=== PATIENT | female | born 1985 | race Caucasian/White ===

== ENCOUNTER → 2021-05-19 | Outpatient (CLI) | payer OTHER, SELFPAY ==
[2021-05-19 13:55] LABS: Amphetamine Urine VISTA NEGATIVE (<1000 ng/mL); Barbiturate Urine VISTA NEGATIVE (< 200 ng/mL); Benzodiazepine Urine VISTA NEGATIVE (< 200 ng/mL); Cocaine Urine VISTA NEGATIVE (< 300 ng/mL); Ecstacy Urine VISTA NEGATIVE (< 500 ng/mL); Methadone Urine VISTA NEGATIVE (< 300 ng/mL); PCP Urine VISTA NEGATIVE (< 25 ng/mL); THC Urine VISTA NEGATIVE (< 50 ng/mL)
[2021-05-19 14:05] LABS: Vista UDS pH Range 5
[2021-05-24 00:06] LABS: Chlamydia By Nucleic Acid AMP Negative (Negative)
[2021-05-24 09:17] LABS: Gonococcus By Nucleic Acid AMP Negative (Negative)
[2021-05-26 16:15] LABS: HPV APTIMA, High Risk Positive (Negative)
== END | disposition home or self-care (01) ==
LOC: LABSPEC 13:15
PROVIDERS: PCP Family Medicine; Referring Provider Obstetrics & Gynecology; Visit Provider Obstetrics & Gynecology
DX: Z34.00 Encounter for supervision of normal first pregnancy, unspecified trimester (principal); Z12.4 Encounter for screening for malignant neoplasm of cervix
CPT/HCPCS: 80307; 87086; 87088; 87491; 87591; 87624; 88175; G0145

== ENCOUNTER 2021-05-31 11:38 | Outpatient (CLI) | payer BC, SELFPAY ==
[2021-05-31 12:03] LABS: Absolute Neutrophil Count 7.6 X10^3/uL (2.0-7.7); Basophil# 0.06 X10^3/uL; Basophil% 0.6 % (0-1); Eosinophil# 0.11 X10^3/uL; Eosinophils% 1.1 % (0-5); Hematocrit 39.2 % (37-47); Hemoglobin 13.3 g/dL (12.0-15.0); Lymphocyte % 18.4 % (19-41); Mean Corp Hgb Conc 33.9 g/dL (32-36); Mean Corpuscular Hgb 30.9 pg (27.0-32.0); Mean Corpuscular Volume 91.2 fL (81-99); Mean Platelet Vol. 10.8 fl (6.2-12.0); Monocyte# 0.57 X10^3/uL; Monocyte% 5.5 % (0-10); NRBC Flagged by Analyzer 0 % (0-5); Neutrophil # 7.64 X10^3/uL (2.7-7.7); Neutrophil % 74.2 % (47-70); Platelet Count 253 K/mm3 (150-450); RBC Distribution Width CV 12.7 % (11.6-14.6); RBC Distribution Width SD 41.4 fl (35.1-43.9); White Blood Count 10.3 K/mm3 (4.4-11.0)
[2021-05-31 12:55] LABS: NATERA MAILED SPECIMEN
[2021-05-31 13:05] LABS: HIV - WCH Non-Reactive (Nonreactive); Hepatitis B Surface Antigen Non-Reactive (Nonreactive); Hepatitis C Antibody Non-Reactive (Nonreactive); Rubella IgG Reactive (Nonreactive); Syphilis Antibodies Non-reactive
== END 2021-05-31 23:59 | disposition short-term general hospital (02) ==
PROVIDERS: PCP Family Medicine; Referring Provider Obstetrics & Gynecology; Visit Provider Obstetrics & Gynecology
DX: Z34.81 Encounter for supervision of other normal pregnancy, first trimester (principal)
CPT/HCPCS: 36415; 85025; 86703; 86762; 86780; 86803; 86850; 86900; 86901; 87340

== ENCOUNTER 2021-07-29 13:13 | Outpatient (CLI) | payer BC, SELFPAY | END 2021-07-29 23:59 | disposition home or self-care (01) | LOC: IMMUN 08-02 13:14 | PROVIDERS: PCP Family Medicine; Visit Provider Family Medicine | DX: Z23 Encounter for immunization (principal) ==

== ENCOUNTER 2021-09-09 13:06 | Outpatient (CLI) | payer BC, SELFPAY ==
[2021-09-09 13:27] LABS: Absolute Neutrophil Count 9.3 X10^3/uL (2.0-7.7); Basophil# 0.05 X10^3/uL; Basophil% 0.4 % (0-1); Eosinophil# 0.16 X10^3/uL; Eosinophils% 1.3 % (0-5); Hematocrit 35.4 % (37-47); Hemoglobin 11.7 g/dL (12.0-15.0); Lymphocyte % 14.8 % (19-41); Mean Corp Hgb Conc 33.1 g/dL (32-36); Mean Corpuscular Hgb 31.5 pg (27.0-32.0); Mean Corpuscular Volume 95.4 fL (81-99); Mean Platelet Vol. 10.6 fl (6.2-12.0); Monocyte# 0.79 X10^3/uL; Monocyte% 6.5 % (0-10); NRBC Flagged by Analyzer 0 % (0-5); Neutrophil # 9.27 X10^3/uL (2.7-7.7); Neutrophil % 76.2 % (47-70); Platelet Count 230 K/mm3 (150-450); RBC Distribution Width CV 12.8 % (11.6-14.6); RBC Distribution Width SD 44.4 fl (35.1-43.9); Red Blood Count 3.71 M/mm3 (4.2-5.4); White Blood Count 12.2 K/mm3 (4.4-11.0)
[2021-09-09 13:45] LABS: Glucose Challenge Gest 1H 50g 113 mg/dL (70-140)
== END 2021-09-09 23:59 | disposition home or self-care (01) ==
LOC: PAVLAB 13:07
PROVIDERS: PCP Family Medicine; Referring Provider Obstetrics & Gynecology; Visit Provider Obstetrics & Gynecology
DX: Z34.00 Encounter for supervision of normal first pregnancy, unspecified trimester (principal)
CPT/HCPCS: 36415; 82950; 85025

== ENCOUNTER → 2021-10-05 | Outpatient (CLI) | payer BC, SELFPAY ==
--- NOTE | 2021-10-05 14:27 | US_ITS ---
STUDY: SECOND AND THIRD TRIMESTER OBSTETRICAL ULTRASOUND - LIMITED REASON FOR EXAM: Female, 35 years old growth for twins LMP: 03/14/2021. PRIOR ULTRASOUND: None. TECHNIQUE: Transabdominal TECHNICAL QUALITY: Adequate. FINDINGS: Baby A: There is a single intrauterine fetus. The fetus is in a cephalic presentation. There is demonstrated cardiac activity with a heart rate of 150 bpm. There is a normal amniotic fluid volume. The largest amniotic fluid pocket measures 5.8 cm. The amniotic fluid index (FLO) is within normal limits . The placenta is posterior in location and is not low lying. There are Grade 0 placental changes. The cervix measures 3.1 cm in length. BIOMETRY: BPD: 7.7 cm: 30 weeks, 5 days HC: 27.6 cm: 30 weeks, 1 days AC: 24.9 cm: 29 weeks, 1 days FL: 5.4 cm: 28 weeks, 4 days Age by LMP: 29 weeks, 2 days. FADY by LMP: 12/19/2021. age by current US: 29 weeks, 3 days. FADY by current US: 12/18/2021. Estimated weight: 1367 grams, +/- 205 grams, 37 percentile. IMPRESSION: Single live intrauterine gestation with a mean gestational age of 29 weeks and 3 days. Electronically Signed: Richar Cross MD at 13:09 EDT , STUDY: SECOND AND THIRD TRIMESTER OBSTETRICAL ULTRASOUND - TWIN REASON FOR EXAM: Female, 35 years old. LMP: 03/14/2021. growth for twins TECHNIQUE: Transabdominal TECHNICAL QUALITY: Adequate. COMPARISON: None. FINDINGS: . Fetus B demonstrates cardiac activity with a heart rate of 141 bpm. Fetus B is in a breech presentation. FETUS B BIOMETRY: BPD: 7.3 cm: 29 weeks, 1 days HC: 27.2 cm: 29 weeks, 4 days AC: 25.8 cm: 29 weeks, 6 days FL: 5.6 cm: 29 weeks, 4 days CI: 77% FL/BPD: 77% FL/HC: FL/AC: 22% HC/AC: 1.06 age by current US: 29 weeks, 1 days. FADY by current US: 12/19/2021. Estimated weight: 1454 grams, +/- 208 grams, 55 %. Age by LMP: 29 weeks, 2 days. FADY by LMP: 12/19/2021. US/OB Limited With Biometrics IMPRESSION: Normal intrauterine . Electronically Signed: Richar Cross MD at 13:32 EDT ,
== END | disposition home or self-care (01) ==
LOC: US 14:26
PROVIDERS: PCP Family Medicine; Referring Provider Obstetrics & Gynecology; Visit Provider Obstetrics & Gynecology
DX: O30.002 Twin pregnancy, unspecified number of placenta and unspecified number of amniotic sacs, second trimester (principal); F41.1 Generalized anxiety disorder; Z3A.27 27 weeks gestation of pregnancy; O99.342 Other mental disorders complicating pregnancy, second trimester
CPT/HCPCS: 76816

== ENCOUNTER → 2021-11-22 | Outpatient (CLI) | payer BC, SELFPAY | END | disposition home or self-care (01) | LOC: LABSPEC 17:12 | PROVIDERS: PCP Family Medicine; Visit Provider Obstetrics & Gynecology | DX: Z34.00 Encounter for supervision of normal first pregnancy, unspecified trimester (principal) | CPT/HCPCS: 87081 ==

== ENCOUNTER → 2021-11-25 | Outpatient (CLI) | payer BC, SELFPAY ==
--- NOTE | 2021-11-25 14:16 | US_ITS ---
STUDY: SECOND AND THIRD TRIMESTER OBSTETRICAL ULTRASOUND - TWIN REASON FOR EXAM: Female, 36 years old. growth TECHNIQUE: Transabdominal TECHNICAL QUALITY: Adequate. COMPARISON: Oct 05 2021 2:33pm FINDINGS: There are two intrauterine fetuses. Fetus A demonstrates cardiac activity with a heart rate of 131 bpm. Fetus ?A? is in a cephalic presentation. Left There is a normal amniotic fluid volume. The largest amniotic fluid pocket measures 4.5 cm. The placenta is posterior in location and is not low lying. There are Grade 2 placental changes. The cervix is obscured by overlying bowel gas and cannot be identified. . The bilateral adnexal regions are nonvisualized. FETUS A BIOMETRY: BPD: 90 mm: 36 weeks, 2 days HC: 321 mm: 36 weeks, 1 days AC: 313 mm: 35 weeks, 1 days FL: 68 mm: 34 weeks, 5 days CI: 82.4 FL/AC: 21.7 FL/BPD: 75.3 HC/AC: 1.03 age by current US: 35 weeks, 3 days. FADY by current US: 8.2.22. Estimated weight: 2664 grams, +/- 400 grams, 24.3 %. age by prior US: 36 weeks, 5 days. FADY by prior US: 7.24.22. Age by LMP: 36 weeks, 4 days. FADY by LMP: 7.25.22. FETUS A ANATOMY: Gender: Female Fetus B demonstrates cardiac activity with a heart rate of 132 bpm. Fetus B is in a cephalic presentation. Right. There is a normal amniotic fluid volume. The largest amniotic fluid pocket measures 4.6 cm. The placenta is anterior in location and is not low lying. There are Grade 2 placental changes. The cervix is obscured by overlying bowel gas and cannot be identified. . The bilateral adnexal regions are nonvisualized. FETUS B BIOMETRY: BPD: 80 mm: 32 weeks, 0 days HC: 321 mm: 36 weeks, 1 days AC: 337 mm: 37 weeks, 4 days FL: 69 mm: 35 weeks, 3 days CI: 68 FL/AC: 20.5 FL/BPD: 86.5 HC/AC: .95 age by current US: 35 weeks, 2 days. FADY by current US: 8.3.22. Estimated weight: 2879 grams, +/- 432 grams, 44.2 %. age by prior US: 36 weeks, 4 days. FADY by prior US: 7.25.22. Age by LMP: 36 weeks, 4 days. FADY by LMP: 7.25.22. FETUS B ANATOMY: Gender: Male IMPRESSION: There are two intrauterine fetuses. Fetus A demonstrates cardiac activity with a heart rate of 131 bpm. age by current US: 35 weeks, 3 days. FADY by current US: 8.2.22. Estimated weight: 2664 grams, +/- 400 grams, 24.3 %. Fetus B demonstrates cardiac activity with a heart rate of 132 bpm. age by current US: 35 weeks, 2 days. FADY by current US: 8.3.22. Estimated weight: 2879 grams, +/- 432 grams, 44.2 %. Electronically Signed: Jimy Melo MD at 16:33 EDT , STUDY: SECOND AND THIRD TRIMESTER OBSTETRICAL ULTRASOUND - TWIN REASON FOR EXAM: Female, 36 years old. growth TECHNIQUE: Transabdominal TECHNICAL QUALITY: Adequate. COMPARISON: Oct 05 2021 2:33pm FINDINGS: There are two intrauterine fetuses. There is a normal amniotic fluid volume within each amniotic sac. Fetus A demonstrates cardiac activity with a heart rate of 131 bpm. Fetus ?A? is in a cephalic presentation. Left There is a normal amniotic fluid volume. The largest amniotic fluid pocket measures 4.5 cm. The placenta is posterior in location and is not low lying. There are Grade 2 placental changes. The cervix is obscured by overlying bowel gas and cannot be identified. . The bilateral adnexal regions are nonvisualized. FETUS A BIOMETRY: BPD: 90 mm: 36 weeks, 2 days HC: 321 mm: 36 weeks, 1 days AC: 313 mm: 35 weeks, 1 days FL: 68 mm: 34 weeks, 5 days CI: 82.4 FL/AC: 21.7 FL/BPD: 75.3 HC/AC: 1.03 age by current US: 35 weeks, 3 days. FADY by current US: 8.2.22. Estimated weight: 2664 grams, +/- 400 grams, 24.3 %. age by prior US: 36 weeks, 5 days. FADY by prior US: 7..22. Age by LMP: 36 weeks, 4 days. FADY by LMP: 7..22. FETUS A ANATOMY: Gender: Female Fetus B demonstrates cardiac activity with a heart rate of 132 bpm. Fetus B is in a cephalic presentation. Right. There is a normal amniotic fluid volume. The largest amniotic fluid pocket measures 4.6 cm. The placenta is anterior in location and is not low lying. There are Grade 2 placental changes. The cervix is obscured by overlying bowel gas and cannot be identified. . The bilateral adnexal regions are nonvisualized. FETUS B BIOMETRY: BPD: 80 mm: 32 weeks, 0 days HC: 321 mm: 36 weeks, 1 days AC: 337 mm: 37 weeks, 4 days FL: 69 mm: 35 weeks, 3 days CI: 68 FL/AC: 20.5 FL/BPD: 86.5 HC/AC: .95 age by current US: 35 weeks, 2 days. FADY by current US: 8.3.22. Estimated weight: 2879 grams, +/- 432 grams, 44.2 %. age by prior US: 36 weeks, 4 days. FADY by prior US: 7..22. Age by LMP: 36 weeks, 4 days. FADY by LMP: 7..22. FETUS B ANATOMY: Gender: Male US/OB Limited With Biometrics
== END | disposition home or self-care (01) ==
PROVIDERS: PCP Family Medicine; Referring Provider Obstetrics & Gynecology; Visit Provider Obstetrics & Gynecology
DX: O30.001 Twin pregnancy, unspecified number of placenta and unspecified number of amniotic sacs, first trimester (principal); Z3A.00 Weeks of gestation of pregnancy not specified
CPT/HCPCS: 76816

== ENCOUNTER → 2021-11-30 | Outpatient (CLI) | payer BC, SELFPAY ==
[2021-11-30 11:20] LABS: ROM Internal Control Test YES-OK TO RESULT pt. (Internal QC); ROM Patient Test Negative (Negative)
== END | disposition home or self-care (01) ==
LOC: LABSPEC 11:02
PROVIDERS: PCP Family Medicine; Visit Provider Nurse Practitioner Women's Health
DX: O42.90 Premature rupture of membranes, unspecified as to length of time between rupture and onset of labor, unspecified weeks of gestation (principal); Z3A.00 Weeks of gestation of pregnancy not specified
CPT/HCPCS: 84112

== ENCOUNTER → 2021-12-06 | Outpatient (CLI) | payer BC, SELFPAY ==
--- NOTE | 2021-12-06 18:37 | US_ITS ---
STUDY: OBSTETRICAL ULTRASOUND - BIOPHYSICAL PROFILE REASON FOR EXAM: Female, 36 years old. well-being. Twin . LMP: 03/14/2021 PRIOR ULTRASOUND: 11/25/2021 and 10/05/2021 TECHNIQUE: TECHNICAL QUALITY: Adequate. FINDINGS: There is a dichorionic diamniotic twin . Fetus A in a cephalic presentation on the maternal left. There is demonstrated cardiac activity with a heart rate of 124 bpm. There is a normal amniotic fluid volume. The largest amniotic fluid pocket measures 4.4 cm. The placenta is posterior in location and is not low lying. There are Grade 2 placental changes. Age by LMP: 38 weeks, 1 days. FADY by LMP: 12/19/2021.. age by prior US: 38 weeks, 2 days. FADY by prior US: 12/18/2021.. Gender: Female BIOPHYSICAL PROFILE: Breathing Movements (FBM): 2 Gross Body Movements (GBM): 2 Tone (FT): 2 Amniotic Fluid Volume (AFV): 2 TOTAL SCORE: 8 / 8 Fetus B in a cephalic presentation on maternal right. There is demonstrated cardiac activity with a heart rate of 138 bpm. There is a normal amniotic fluid volume. The largest amniotic fluid pocket measures 4.3 cm. The placenta is anterior in location and is not low lying. There are Grade 2 placental changes. Age by LMP: 38 weeks, 1 days. FADY by LMP: 12/19/2021.. age by prior US: 30 weeks, 1 days. FADY by prior US: 12/19/2021. Gender: Male BIOPHYSICAL PROFILE: Breathing Movements (FBM): 2 Gross Body Movements (GBM): 2 Tone (FT): 2 Amniotic Fluid Volume (AFV): 2 TOTAL SCORE: 8 / 8 IMPRESSION: 1. Normal biophysical profile of 8/8 for fetus A. 2. Normal biophysical profile of 8/8 for fetus B. Electronically Signed: Werner Wells DO at 20:24 EDT , STUDY: OBSTETRICAL ULTRASOUND - BIOPHYSICAL PROFILE REASON FOR EXAM: Female, 36 years old. well-being. Twin . LMP: 03/14/2021 PRIOR ULTRASOUND: 11/25/2021 and 10/05/2021 TECHNIQUE: TECHNICAL QUALITY: Adequate. FINDINGS: There is a dichorionic diamniotic twin . Fetus A in a cephalic presentation on the maternal left. There is demonstrated cardiac activity with a heart rate of 124 bpm. There is a normal amniotic fluid volume. The largest amniotic fluid pocket measures 4.4 cm. The placenta is posterior in location and is not low lying. There are Grade 2 placental changes. Age by LMP: 38 weeks, 1 days. FADY by LMP: 12/19/2021.. age by prior US: 38 weeks, 2 days. FADY by prior US: 12/18/2021.. Gender: Female BIOPHYSICAL PROFILE: Breathing Movements (FBM): 2 Gross Body Movements (GBM): 2 Tone (FT): 2 Amniotic Fluid Volume (AFV): 2 TOTAL SCORE: 8 / 8 Fetus B in a cephalic presentation on maternal right. There is demonstrated cardiac activity with a heart rate of 138 bpm. There is a normal amniotic fluid volume. The largest amniotic fluid pocket measures 4.3 cm. The placenta is anterior in location and is not low lying. There are Grade 2 placental changes. Age by LMP: 38 weeks, 1 days. FADY by LMP: 12/19/2021.. age by prior US: 30 weeks, 1 days. FADY by prior US: 12/19/2021. Gender: Male BIOPHYSICAL PROFILE: Breathing Movements (FBM): 2 Gross Body Movements (GBM): 2 Tone (FT): 2 Amniotic Fluid Volume (AFV): 2 TOTAL SCORE: 8 / 8 US/Biophysical Prof W/O Non Stres IMPRESSION: 1. Normal biophysical profile of 8 for fetus A. 2. Normal biophysical profile of 8 for fetus B. Electronically Signed: Werner Wells DO at 20:25 EDT ,
== END | disposition home or self-care (01) ==
LOC: US 18:35
PROVIDERS: PCP Family Medicine; Visit Provider Obstetrics & Gynecology
DX: O30.003 Twin pregnancy, unspecified number of placenta and unspecified number of amniotic sacs, third trimester (principal); Z3A.38 38 weeks gestation of pregnancy
CPT/HCPCS: 76819

== ENCOUNTER 2021-12-07 07:05 | Inpatient (IN) | payer BC, SELFPAY ==
[2021-12-07] VITALS (41 sets, daily range): BP systolic 117–143; BP diastolic 61–83; PULSE 55–164; TEMP 36.6–37.6; O2SAT 96–100; BMI 28.5
[2021-12-07] MEDS: Lactated Ringers 1,000 ML 50 ML IV (08:00)
[2021-12-07] MEDS: Oxytocin 30 units/NS 500 ml 30 UNITS/500 ML IV.SOLN IV (08:28)
[2021-12-07 08:31] LABS: Absolute Lymphocyte Count 1.92 X10^3/uL (0.83-4.51); Absolute Neutrophil Count 5.6 X10^3/uL (2.0-7.7); Basophil# 0.11 X10^3/uL; Basophil% 1.3 % (0-1); Eosinophil# 0.31 X10^3/uL; Eosinophils% 3.6 % (0-5); Hematocrit 36.4 % (37-47); Hemoglobin 11.9 g/dL (12.0-15.0); Lymphocyte # 1.92 X10^3/ul (0.83-4.51); Lymphocyte % 22.3 % (19-41); Mean Corp Hgb Conc 32.7 g/dL (32-36); Mean Corpuscular Hgb 28.7 pg (27.0-32.0); Mean Corpuscular Volume 87.7 fL (81-99); Mean Platelet Vol. 13.8 fl (6.2-12.0); Monocyte# 0.59 X10^3/uL; Monocyte% 6.9 % (0-10); NRBC Flagged by Analyzer 0 % (0-5); Neutrophil # 5.58 X10^3/uL (2.7-7.7); Neutrophil % 64.7 % (47-70); Platelet Count 170 K/mm3 (150-450); RBC Distribution Width SD 44.5 fl (35.1-43.9); Red Blood Count 4.15 M/mm3 (4.2-5.4); White Blood Count 8.6 K/mm3 (4.4-11.0)
[2021-12-07] MEDS: 0.9% Normal Saline Single 100 ML IV.SOLN. INTRA-UTER (09:02)
--- NOTE | 2021-12-07 09:03 | HP.PCM.OB_ITS ---
HPI - General General Date of Admission: 12/07/21 HPI Narrative LINNETTE MORALES, is a 36 F who presents ofr IOL secondary to twins, uncomplicated no vb lof admits good fm x 2 Maternal Data Information FADY Calculator Estimated Delivery Date Method Current WG Current Estimate 12/19/21 LMP (Certain) 38w 2d Other Estimates 12/17/21 Ultrasound #1 38w 4d # 2 PFSH PFSH Medical History (Updated 12/07/21 @ 09:[address] Eun Orourke MD) ASCUS with positive high risk HPV COVID-19 vaccine series completed ALMA DELIA (generalized anxiety disorder) Home Medications multivitamin no.47-iron fum 27 mg-folate no.1 1 mg-dha 300 mg capsule (PNV-DHA) 1 cap PO DAILY 05/04/21 [History Last Taken 12/05/21 10:00] aspirin 81 mg tablet 81 mg PO DAILY 12/07/21 [History Last Taken 12/05/21 10:00] Allergy/AdvReac Type Severity Reaction Status Date / Time No Known Allergies Allergy Verified 11/30/21 10:29 Family History Grandmother Breast cancer Other Cancer Hypertension Surgical History (Updated 12/07/21 @ 08:02 by Sara Tsang) History of surgery Social History household members: family current occupational status: employed current occupation: [employer] pets and animals: Yes Smoking Status: Never smoker second hand exposure: No alcohol intake: current details: not while substance use type: does not use caffeine: No seatbelt use: always do you feel safe at home: Yes additional social history: - Haroon- step son Angel Luis age 8 History 1 Elective abortions Hx Para 0 Spontaneous abortions Hx # Term Pregnancies Ectopic pregnancies Hx # Pregnancies Multiple births # of living children Visit Details Expected Delivery Route/Plan Labor Preferences- CB/BF classes: encouraged labor support person: [] labor intervention preferences: [] pain management options preferred: [] cut cord/dad catch: [] : [] PP control planned: [] discussed possible routes of delivery and associated risks: [] special requests: [] Plans Covid status: vaccinated. Flu vaccine: encouraged. Tdap vaccine: given Rhogam: na LARC form signed: na movement and labor precautions reviewed. Problem list reviewed and updated with the most current plan of care details and appropriate orders placed. Relevant counseling for the gestational age provided. Continue routine care and follow up unless otherwise noted in visit notes/problem list details OB Flowsheet Initial Weight: Not Recorded Date -?-?-?-?--?-?-?-?-?-?-?-?- EGA Weight BP Urine Prot -?-?-?-?-?-?-?-?-?-?-?-?- Glucose FHR FuHt Pres Dilation -?-?-?-?-?-?-?-?-?-?-?-?- Effaced St Visit Note 05/19/21 -?-?-?-?-?-?-?-?-?-?-?-?- 9w 3d 137 lb 4 oz 122/76 -?-?-?-?-?-?-?-?-?-?-?-?- A -?-?-?-?-?-?-?-?-?-?-?-?- B A -?-?-?-?-?-?-?-?-?-?-?-?- B -?-?-?-?-?-?-?-?-?-?-?-?- A -?-?-?-?-?-?-?-?-?-?-?-?- B A JV- Di/Di twin g estation both consistent with cRL -?-?-?-?-?-?-?-?-?-?-?-?- B 06/17/21 -?-?-?-?-?-?-?-?-?-?-?-?- 13w 4d 141 lb 110/72 110/72 Negative -?-?-?-?-?-?-?-?-?-?-?-?- Negative A 145 -?-?-?-?-?-?-?-?-?-?-?-?- B 145 A -?-?-?-?-?-?-?-?-?-?-?-?- B -?-?-?-?-?-?-?-?-?-?-?-?- A -?-?-?-?-?-?-?-?-?-?-?-?- B A SM- no vb some c ramping -?-?-?-?-?-?-?-?-?-?-?-?- B 07/15/21 -?-?-?-?-?-?-?-?-?-?-?-?- 17w 4d 151 lb 120/70 Negative -?-?-?-?-?-?-?-?-?-?-?-?- Negative A 135 -?-?-?-?-?-?-?-?-?-?-?-?- B 145 A -?-?-?-?-?-?-?-?-?-?-?-?- B -?-?-?-?-?-?-?-?-?-?-?-?- A -?-?-?-?-?-?-?-?-?-?-?-?- B A SM- no vb lof cr amping -?-?-?-?-?-?-?-?-?-?-?-?- B 07/21/21 -?-?-?-?-?-?-?-?-?-?-?-?- 18w 3d 151 lb 6 oz 120/70 Nega tive -?-?-?-?-?-?-?-?-?-?-?-?- Negative A 130 -?-?-?-?-?-?-?-?-?-?-?-?- B 140 A -?-?-?-?-?-?-?-?-?-?-?-?- B -?-?-?-?-?-?-?-?-?-?-?-?- A -?-?-?-?-?-?-?-?-?-?-?-?- B A JV- pt here for colposcopy see below -?-?-?-?-?-?-?-?-?-?-?-?- B 08/10/21 -?-?-?-?-?-?-?-?-?-?-?-?- 21w 2d 155 lb 4 oz 108/60 Nega tive -?-?-?-?-?-?-?-?-?-?-?-?- Negative A 144 -?-?-?-?-?-?-?-?-?-?-?-?- B 156 A -?-?-?-?-?-?-?-?-?-?-?-?- B -?-?-?--?-?-?-?-?-?-?-?-?- A -?-?-?-?-?-?-?-?-?-?-?-?- B A JV- anatomy scan done with mfm report pending. pt has a back pain under right scapula. recommend heat and massage and possibly sending to chiropractor. has c/o nipple sore. looks to be chapped from not wearing bras. -?-?-?-?-?-?-?-?-?-?-?-?- B 09/09/21 -?-?-?-?-?-?-?-?-?-?-?-?- 25w 4d 161 lb 6 oz 123/75 Nega tive -?-?-?-?-?-?-?-?-?-?-?-?- Negative A 144 -?-?-?-?-?-?-?-?-?-?-?-?- B 147 A -?-?-?-?-?-?-?-?-?-?-?-?- B -?-?-?-?-?-?-?-?-?-?-?-?- A -?-?-?-?-?-?-?-?-?-?-?-?- B A nl gct cbc no vb lof good fm no regular ctx -?-?-?-?-?-?-?-?-?-?-?-?- B 09/23/21 -?-?-?-?-?-?-?-?-?--?-?-?- 27w 4d 110/77 -?-?-?-?-?-?-?-?-?-?-?-?- A 155 -?-?-?-?-?-?-?-?-?-?-?-?- B 145 A -?-?-?-?-?-?-?-?-?-?-?-?- B -?-?-?-?-?-?-?-?-?-?-?-?- A -?-?-?-?-?-?-?-?-?-?-?-?- B A SM- no vb lof go od fm no regualr ctx -?-?-?-?-?-?-?-?-?-?-?-?- B 10/06/21 -?-?-?-?-?-?-?-?-?-?-?-?- 29w 3d 168 lb 2 oz 130/70 Nega tive -?-?-?-?-?-?-?-?-?-?-?-?- Negative A 128 -?-?-?-?-?-?-?-?-?-?-?-?- B 135 A Cephalic -?-?-?-?-?-?-?-?-?-?-?--?- B Breech -?-?-?-?-?-?-?-?-?-?-?-?- A -?-?-?-?-?-?-?-?-?-?-?-?- B A JV- no concerns growth scan done yesterday baby A 37th% baby B 55th% -?-?-?-?-?-?-?-?-?-?-?-?- B 10/21/21 -?-?-?-?-?-?-?-?-?-?-?-?- 31w 4d 170 lb 104/68 Negative -?-?-?-?-?-?-?-?-?-?-?-?- Negative A 145 -?-?-?-?-?-?--?-?-?-?-?-?- B 140 A Cephalic -?-?-?-?-?-?-?-?-?-?-?-?- B Breech -?-?-?-?-?-?-?-?-?-?-?-?- A -?-?-?-?-?-?-?-?-?-?-?-?- B A SM- no vb lof go od fm no regular ctx -?-?-?-?-?-?-?-?-?-?-?-?- B 11/01/21 -?-?-?-?-?-?-?-?-?-?-?-?- 33w 1d 173 lb 132/80 -?-?-?-?-?-?-?-?-?-?-?-?- A 150 -?-?-?-?-?-?-?-?-?-?-?-?- B 160 A Cephalic -?-?-?-?-?-?-?-?-?-?-?-?- B Cephalic -?-?-?-?-?-?-?-?-?-?-?-?- A -?-?-?-?-?-?-?-?-?-?-?-?- B A sm- NO VB LOF GO OD FM NOR EGUALR CTX -?-?-?-?-?-?-?-?-?-?-?-?- B 11/16/21 -?-?-?-?-?-?-?-?-?-?-?-?- 35w 2d 176 lb 6 oz 120/84 Nega tive -?-?-?-?-?-?-?-?--?-?-?-?- Negative A 168 -?-?-?-?-?-?-?-?-?-?-?-?- B 157 A Cephalic -?-?-?-?-?-?-?-?-?-?-?-?- B Cephalic -?-?-?-?-?-?-?-?-?-?-?-?- A -?-?-?-?-?-?-?-?-?-?-?-?- B A JV- formal growt h scan ordered. gbs next week. induce 38 weeks. no lof, vaginal bleeding, or dec fm. -?-?-?-?-?-?-?-?-?-?-?-?- B 11/22/21 -?-?-?-?-?-?-?-?-?-?-?-?- 36w 1d 177 lb 104/70 Negative -?-?-?-?-?-?-?-?-?-?-?-?- Negative A 160 -?-?-?-?-?-?-?-?-?-?-?-?- B 130 A Cephalic -?-?-?-?-?-?-?-?-?-?-?-?- B Cephalic -?-?-?-?-?-?-?-?-?-?-?-?- A -?-?-?-?-?-?-?-?-?-?-?-?- B A SM- no vb lof go od fm no regular ctx -?-?-?--?-?-?-?-?-?-?-?-?- B 11/30/21 -?-?-?-?-?-?-?-?-?-?-?-?- 37w 2d 180 lb 2 oz 112/70 Nega tive -?-?-?-?-?-?-?-?-?-?-?-?- Negative A 144 -?-?-?-?-?-?-?--?-?-?-?-?- B 124 A Cephalic -?-?-?-?-?-?-?-?-?-?-?-?- B Cephalic 1 -?-?-?-?-?-?-?-?-?-?-?-?- 40 A -?-?-?-?-?-?-?-?-?-?-?-?- B A -work in for l oss of fluid. Babies actice. ROM pending. -?-?-?-?-?-?-?-?-?-?-?-?- B 12/07/21 -?-?-?-?-?-?-?-?-?-?-?-?- 38w 2d 177 lb 125/69 121/83 -?-?-?--?-?-?-?-?-?-?-?-?- A -?-?-?-?-?-?-?-?-?-?-?-?- B A -?-?-?-?-?-?-?-?-?-?-?-?- B -?-?-?-?-?-?-?-?-?-?-?-?- A -?-?-?-?-?-?-?-?-?-?-?-?- B A -?-?-?-?-?-?-?-?-?-?-?-?- B NST FHR Rate Baby A Baseline: 130 Variability:: Moderate Accelerations:: 15 x 15 Decelerations:: None NST Reactive:: Yes FHR Category:: Category I Uterine Activity:: irregular FHR Rate Baby B Baseline: 140 Variability:: Moderate Accelerations:: 15 x 15 Decelerations:: None NST Reactive:: Yes FHR Category:: Category I ROS Constitutional Constitutional: Reports systems reviewed and no addt'l complaints, except as documented Eyes Eyes: Denies change in vision ENT HEENT: Reports systems reviewed and no addt'l complaints, except as documented; Denies headache(s) Cardiovascular Cardiovascular: Reports systems reviewed and no addt'l complaints, except as documented; Denies chest pain or dyspnea Respiratory/Chest Respiratory/Chest: Reports systems reviewed and no addt'l complaints, except as documented Gastrointestinal Gastrointestinal: Reports systems reviewed and no addt'l complaints, except as documented; Denies abdominal pain Genitourinary Genitourinary: Reports systems reviewed and no addt'l complaints, except as documented, contractions Details: present (irregular) and movement Details: present; Denies dysuria or genital lesions Musculoskeletal Musculoskeletal: Reports systems reviewed and no addt'l complaints, except as documented Neurologic Neurologic: Reports systems reviewed and no addt'l complaints, except as documented Endocrine Endocrinology: Reports systems reviewed and no addt'l complaints, except as d ocumented Vital Signs Vital Signs Vital Signs: 12/07/21 08:06 12/07/21 08:06 12/07/21 08:06 Temperature Temperature Source Temporal Pulse Rate 63 Blood Pressure 125/69 H BP Systolic 125 BP Diastolic 69 Pulse Ox 12/07/21 08:06 12/07/21 08:06 12/07/21 08:58 Temperature 98.0 F Temperature Source Pulse Rate Blood Pressure 121/83 H BP Systolic 121 BP Diastolic 83 Pulse Ox 98 12/07/21 08:58 12/07/21 08:59 12/07/21 08:59 Temperature Temperature Source Pulse Rate 83 164 H Blood Pressure BP Systolic BP Diastolic Pulse Ox 98 12/07/21 08:58 12/07/21 08:58 12/07/21 08:58 Temperature 97.8 F Temperature Source Temporal Pulse Rate Blood Pressure BP Systolic BP Diastolic Pulse Ox 98 Weight Weight: 177 lb Body Mass Index (BMI) 28.5 Physical Exam Const alert, oriented x3, no apparent distress and healthy appearing HEENT normocephalic and moist oral mucous membranes Head and Scalp: atraumatic Neck full ROM, no lymphadenopathy, supple and thyroid normal General: trachea midline Lymph Lymphatic: no lymphadenopathy noted Chest inspection of chest normal Resp normal respiratory effort Cardio regular rate GI normal to inspection, nondistended, normoactive bowel sounds, soft to palpation and non-tender Inspection: gravid external exam normal Manual OB Exam: estimated gestational size appropriate, presentation cephalic, dilated, effaced and station Extremity normal to inspection General Extremity: Negative for edema Skin no rashes or lesions noted Neuro no focal motor deficits and deep tendon reflexes 2+ bilaterally Motor Exam: strength 5/5 throughout and clonus absent Psych mental status grossly normal Labs Labs Labs: Blood Type O POSITIVE Antibody Screen NEGATIVE Hct 36.4 % (37-47) L Hgb 11.9 g/dL (12.0-15.0) L Obstetrics US Syphilis Total Ab Non-reactive Rubella IgG Antibody Reactive (Nonreactive) Hep Bs Antigen Non-Reactive (Nonreactive) Chlamydia DNA ([facility]) Negative (Negative) Neisseria gonorrhoeae DNA ([facility]) Negative (Negative) HIV 1&2 Antibody Non-Reactive (Nonreactive) Glucose 1 Hr 50 gm 113 mg/dL (70-140) Assessment & Plan (1) ALMA DELIA (generalized anxiety disorder): COMMENT: counseling, zoloft in past, discussed options. (2) Twin gestation in first trimester: COMMENT: di/di on [id number] plan for monthly scan and consult with MFM in 2nd/3rd trimesters, 09/01 FU growth 2.9% difference in weight nl growth. 10/05 NL growth 6% discordance induction 12/06 goldman bulb/SM (3) ASCUS with positive high risk HPV: COMMENT: plan colp (4) Supervision of normal first : COMMENT: PRR FADY: 12/19/21, boy and girl Spouse: Haroon (Angel Luis age 8) (5) : QUALIFIERS: Weeks of gestation: 35 weeks Qualified Code(s): Z3A.35 - 35 weeks gestation of COMMENT: GBS Negative, anatomy nl, repeat views baby b in 2 wks, NIPT low risk, discussed carrier, nl growth US (6) Encounter for induction of labor: PLAN: Plan Patient presents IOL, plan management for with pitocin/AROM. goldman bulb to start Pain management: plans epidural. GBS negative. Management of any complications: twins- both vertex on ultrasound today I have reviewed the [facility] and made any clinically relevant updates.
[2021-12-07] MEDS: LACTATED RINGERS 500 ML 999 ML IV ×3 (12:01→21:24)
--- NOTE | 2021-12-07 12:04 | PCM.PN.BLA ---
Progress Note goldman bulb out arom light meconium 4/80/0 will get epidural. cat I tracing I x 2 continue pit per protocol
[2021-12-07] MEDS: fentaNYL-bupivacaine (epidural) 100 ML BAG EPIDURAL ×2 (12:56→20:20)
[2021-12-07] MEDS: Lactated Ringers 1,000 ML 200 ML IV ×2 (17:33→22:14)
[2021-12-08] VITALS (47 sets, daily range): BP systolic 106–157; BP diastolic 56–105; PULSE 40–95; RESP 18; TEMP 36.6–38.3; O2SAT 96–100
[2021-12-08] MEDS: Lactated Ringers 1,000 ML 200 ML IV ×2 (04:03→11:04)
[2021-12-08] MEDS: fentaNYL-bupivacaine (epidural) 100 ML BAG EPIDURAL (04:03)
[2021-12-08] MEDS: LACTATED RINGERS 500 ML 999 ML IV ×2 (05:18→15:56)
[2021-12-08] MEDS: Acetaminophen 500 MG Tablet PO (07:33)
[2021-12-08] MEDS: Oxytocin 30 units/NS 500 ml 30 UNITS/500 ML IV.SOLN 334 UNITS IV (13:33)
[2021-12-08] MEDS: Methylergonovine 0.2 MG/ML Ampul IM (13:47)
--- NOTE | 2021-12-08 14:57 | EX.PCM.OBRPT ---
Maternal Data Information FADY Calculator Estimated Delivery Date Method Current Current Estimate 12/19/21 LMP (Certain) 38w 4d Other Estimates 12/17/21 Ultrasound #1 38w 6d # 2 Vaginal Delivery Maternal Presentation Maternal Presentation: Medically Indicated Induction Operative Information Date of Procedure: 12/08/21 Pre-Operative Diagnosis: IOL twins Post-Operative Diagnosis: same Surgery / Procedure Performed: Spontaneous Vaginal Delivery Type of Anesthesia: Epidural Special Medications: none Estimated Blood Loss: 600 Fluids Replaced: crystalloid Findings Description of Procedure: Patient began pushing and delivered the head in the LOP presentation. The head was delivered atraumatically. The anterior and posterior shoulders delivered without complication followed by the rest of the infant and the was placed on the maternal abdomen. Delayed cord clamping was employed for approximately 60 seconds. the second infant was scanned and confirmed to be vertex. after several contractions the head was well applied and membranes ruptured for clear fluid. Patient was then complete again and began pushing and delivered the head in the LOP presentation. The head was delivered atraumatically. The anterior and posterior shoulders delivered without complication followed by the rest of the and the was placed on the maternal abdomen. Delayed cord clamping was employed for approximately 60 seconds. Cord was clamped and cut and gentle traction was applied to the cord and the placenta delivered spontaneously immediately following it was noted to be intact with three-vessel cord. The perineum and vagina were inspected and noted to have a second degree laceration repaired in the usual fashion with 3-0 rapide. a 1 cm mole was removed from the inner thigh and sutured with 3-0 rapide without complication also. EBL was 600. methergine given fro atony Patient and tolerated delivery well. Presentation: LOP Amniotic Membrane Rupture Type: Artificial Amniotic Fluid Description: Clear Placental Delivery Description: Spontaneous Placenta Disposition: [facility] Cord Vessel Description: 3 Vessels Cord Entanglement: None A Gender: Female Delayed Cord Clamping: Yes Post Vaginal Delivery Medications Given After Delivery: IV Pitocin Episiotomy Description: None Laceration: None Complication Complications: None Baby B Information Amniotic Membrane Rupture Type: Artificial Presentation: Vertex Operative Information Mode of Delivery: Vaginal Cord Vessel Description: 3 Vessels Cord Entanglement: None B gender: Male Multi Select Codes Urinary/Genital Urinary/Genital CPT Codes: 82325 Vaginal Delivery global pkg (twins both vaginal)
--- NOTE | 2021-12-08 15:30 | PLAC_PTH ---
PATIENT: LINNETTE MORALES LOC: WP U#:[id number] AGE/SX: 36/F ROOM: WP019 RE12/07/[address]: Dr. Eun Orourke MD : 1985 BED: 1 DIS: 12/10/2021 SPEC #: [id number] RECD: 12/09/21 08:03 STATUS: SHELBY ENGLISH #: [id number] VICENTE: 12/08/21 15:[address]: Eun Orourke DEPT: SURGICAL PATHOLOGY RECD BY: Saleem Ferris ENTERED: 12/09/21 08:04 SP TYPE: PLACENTA OTHR DR: Dr. Filipe López MD Tissues: A - Placenta, NOS B - TISSUE SURGICALLY REMOVED Procedures: Surgery Specimen Level IV Surgery Specimen Level V HEADER OPERATION: Vaginal delivery PRE-OP DIAGNOSIS: Twins TISSUE SUBMITTED: A ? Placenta, B - Tissue MICROSCOPIC DIAGNOSIS A. Twin (dichorionic diamniotic) placenta: Placenta A Weight 430 gm Umbilical cord ? trivascular with no inflammation. Peripheral membranes ? acute chorioamnionitis and deciduitis. Placental disc ? increased intraparenchymal fibrin plaques, focal mild chronic nonspecific villitis and Russ-Saul change. Placenta B Weight 337 gm Umbilical cord ? trivascular with no inflammation. Peripheral membranes - No pathologic change. Placental disc ? Russ-Saul change and mildly increased fibrin plaques. B. Tissue, not further specified, biopsy: Compound nevus with predominantly intradermal component. AM:shyam 12/13/2021 MICROSCOPIC DESCRIPTION Slides are reviewed. GROSS DESCRIPTION A - SPECIMEN: TWIN PLACENTA / CLINICAL INFORMATION: A. Weight: A ? 2.85 kg; B ? 3.15 kg B. Gestational Age: 38 weeks C. Sex: A ? Female, B - Male The specimen consists of a twin placenta consisting of two separate placental discs joined by membranes. PLACENTA A: (with clamp) PLACENTAL WEIGHT (POST FIXATION): 430 PLACENTAL DIMENSIONS: 19 x 17 x 2.5 cm PLACENTAL SHAPE: Usual ovoid PLACENTAL WEIGHT FOR GESTATIONAL AGE: Within 10-99th percentile (over/under percentile) MEMBRANES - Present A. Insertion: Marginal B. Site of rupture from edge: 4 cm from edge of placental disc C. Color of membrane: Villarreal-mao D. Abnormalities: None UMBILICAL CORD - Present A. Color: Villarreal-mao B. Insertion: Eccentric C. Length: 28 cm D. Diameter: 1.5 cm E. Number of vessels: Three F. Abnormalities: None PLACENTAL DISC - Present A. Color of surface: Villarreal-mao B. surface abnormalities: None C. Maternal cotyledons: Intact with minimal tears D. Attached retro placental clot: No clot E. Cut surface: Dark red and spongy F. Lesions: None G. Separate clot: 12 x 6 x 2 cm PLACENTA B: PLACENTAL WEIGHT (POST FIXATION): 337 gm PLACENTAL DIMENSIONS: 17 x 13 x 3 cm PLACENTAL SHAPE: Usual ovoid PLACENTAL WEIGHT FOR GESTATIONAL AGE: Within 10-99th percentile (over/under percentile) MEMBRANES - Present A. Insertion: Marginal B. Site of rupture from edge: 6 cm from edge of placental disc C. Color of membrane: Villarreal-mao D. Abnormalities: None UMBILICAL CORD - Present A. Color: Villarreal-mao B. Insertion: Eccentric C. Length: 32 cm D. Diameter: 1.2 cm E. Number of vessels: Three F. Abnormalities: None PLACENTAL DISC - Present A. Color of surface: Villarreal-mao B. surface abnormalities: None C. Maternal cotyledons: Intact with minimal tears D. Attached retro placental clot: No clot E. Cut surface: Dark red and spongy F. Lesions: None G. Separate clot: Absent SECTIONS SUBMITTED: 11 cassettes 1 - Dividing membrane 2 - Umbilical cord designated A 3 - Placental membranes designated A 4-6 - Placental disc designated A 7 - Umbilical cord designated B 8 - Placental membranes designated B 9-11 - Placental disc designated B Note, blue ink represents the placental end of umbilical cords. AM:shyam 12/12/2021 B - Received is one container labeled with the patient's name and not further designated. The specimen consists of a dark brown piece of polypoid skin measuring 1 x 0.7 x 0.5 cm. The specimen is inked, serially sectioned and submitted entirely in one cassette. / SJ:shyam 12/09/2021 TC:2 CPT: 24840 x2, 64222
--- NOTE | 2021-12-08 15:30 | PLAC_PTH ---
PATIENT: LINNETTE MORALES LOC: WP U#:[id number] AGE/SX: 36/F ROOM: WP019 RE12/07/[address]: Dr. Eun Orourke MD : 1985 BED: 1 DIS: 12/10/2021 SPEC #: [id number] RECD: 12/09/21 08:03 STATUS: SHELBY ENGLISH #: [id number] VICENTE: 12/08/21 15:[address]: Eun Orourke DEPT: SURGICAL PATHOLOGY RECD BY: Saleem Ferris ENTERED: 12/09/21 08:04 SP TYPE: PLACENTA OTHR DR: Dr. Filipe López MD Tissues: A - Placenta, NOS B - TISSUE SURGICALLY REMOVED Procedures: Surgery Specimen Level IV Surgery Specimen Level V HEADER OPERATION: Vaginal delivery PRE-OP DIAGNOSIS: Twins TISSUE SUBMITTED: A ? Placenta, B - Tissue MICROSCOPIC DIAGNOSIS A. Twin (dichorionic diamniotic) placenta: Placenta A Weight 430 gm Umbilical cord ? trivascular with no inflammation. Peripheral membranes ? acute chorioamnionitis and deciduitis. Placental disc ? superficial vessels with acute vasculitis, increased intraparenchymal fibrin plaques, focal mild chronic nonspecific villitis and Russ-Saul change. Placenta B Weight 337 gm Umbilical cord ? trivascular with no inflammation. Peripheral membranes - No pathologic change. Placental disc ? Russ-Saul change and mildly increased fibrin plaques. B. Tissue, not further specified, biopsy: Compound nevus with predominantly intradermal component. AM:shyam 12/13/2021 AM:shyam 12/19/2021 MICROSCOPIC DESCRIPTION Slides are reviewed. GROSS DESCRIPTION A - SPECIMEN: TWIN PLACENTA / CLINICAL INFORMATION: A. Weight: A ? 2.85 kg; B ? 3.15 kg B. Gestational Age: 38 weeks C. Sex: A ? Female, B - Male The specimen consists of a twin placenta consisting of two separate placental discs joined by membranes. PLACENTA A: (with clamp) PLACENTAL WEIGHT (POST FIXATION): 430 PLACENTAL DIMENSIONS: 19 x 17 x 2.5 cm PLACENTAL SHAPE: Usual ovoid PLACENTAL WEIGHT FOR GESTATIONAL AGE: Within 10-99th percentile MEMBRANES - Present A. Insertion: Marginal B. Site of rupture from edge: 4 cm from edge of placental disc C. Color of membrane: Villarreal-mao D. Abnormalities: None UMBILICAL CORD - Present A. Color: Villarreal-mao B. Insertion: Eccentric C. Length: 28 cm D. Diameter: 1.5 cm E. Number of vessels: Three F. Abnormalities: None PLACENTAL DISC - Present A. Color of surface: Villarreal-mao B. surface abnormalities: None C. Maternal cotyledons: Intact with minimal tears D. Attached retro placental clot: No clot E. Cut surface: Dark red and spongy F. Lesions: None G. Separate clot: 12 x 6 x 2 cm PLACENTA B: PLACENTAL WEIGHT (POST FIXATION): 337 gm PLACENTAL DIMENSIONS: 17 x 13 x 3 cm PLACENTAL SHAPE: Usual ovoid PLACENTAL WEIGHT FOR GESTATIONAL AGE: Within 10-99th percentile MEMBRANES - Present A. Insertion: Marginal B. Site of rupture from edge: 6 cm from edge of placental disc C. Color of membrane: Villarreal-mao D. Abnormalities: None UMBILICAL CORD - Present A. Color: Villarreal-mao B. Insertion: Eccentric C. Length: 32 cm D. Diameter: 1.2 cm E. Number of vessels: Three F. Abnormalities: None PLACENTAL DISC - Present A. Color of surface: Villarreal-mao B. surface abnormalities: None C. Maternal cotyledons: Intact with minimal tears D. Attached retro placental clot: No clot E. Cut surface: Dark red and spongy F. Lesions: None G. Separate clot: Absent SECTIONS SUBMITTED: 11 cassettes 1 - Dividing membrane 2 - Umbilical cord designated A 3 - Placental membranes designated A 4-6 - Placental disc designated A 7 - Umbilical cord designated B 8 - Placental membranes designated B 9-11 - Placental disc designated B Note, blue ink represents the placental end of umbilical cords. AM:shyam 12/12/2021 B - Received is one container labeled with the patient's name and not further designated. The specimen consists of a dark brown piece of polypoid skin measuring 1 x 0.7 x 0.5 cm. The specimen is inked, serially sectioned and submitted entirely in one cassette. / SJ:shyam 12/09/2021 TC:2 CPT: 69643 x2, 69375
[2021-12-08] MEDS: Naproxen 500 MG Tablet PO (22:02)
[2021-12-08] MEDS: Benzocaine/Lanolin/Aloe Vera 1 SPRAY EACH TOPICAL (22:02)
[2021-12-09] VITALS (8 sets, daily range): BP systolic 100–123; BP diastolic 54–73; PULSE 41–81; RESP 16–18; TEMP 35.8–36.4; O2SAT 99–100
--- NOTE | 2021-12-09 16:00 | PCM.PN.OB ---
Subjective Subjective Patient doing well without complaints. Tolerating PO. Ambulating and voiding without difficulty. feeding well. Denies chest pain, shortness of breath, calf pain/swelling, fevers, chills, lightheadedness. Objective Data Objective Data Vital Signs: Vital Signs Temp Pulse Resp BP Pulse Ox O2 Del Method 97.3 F L 65 16 122/71 H 96 Room Air 12/09/21 14:02 12/09/21 14:02 12/09/21 14:02 12/09/21 14:02 12/08/21 16:31 12/09/21 04:22 Oxygen Delivery Method Room Air Weight: 177 lb Body Mass Index (BMI) 28.5 Intake & Output: Intake and Output for Last 24 Hours 12/07/21 12/08/21 12/09/21 23:59 23:59 23:59 Intake Total 3493.48 / 3493.48 4346.68 / 4346.68 Output Total 1550 / 1550 2650 / 2650 Balance 1943.48 / 1943.48 1696.68 / 1696.68 Lab / Micro Data Result Diagrams: 12/07/21 08:00 Micro: Microbiology 12/07/21 08:05 Nasal Secretion SARS-CoV-2 Antigen (Rapid) - Final ROS Constitutional Constitutional: Reports systems reviewed and no addt'l complaints, except as documented Cardiovascular Cardiovascular: Reports systems reviewed and no addt'l complaints, except as documented Respiratory/Chest Respiratory/Chest: Reports systems reviewed and no addt'l complaints, except as documented Gastrointestinal Gastrointestinal: Reports systems reviewed and no addt'l complaints, except as documented Physical Exam Const alert, oriented x3 and no apparent distress HEENT Head and Scalp: atraumatic Resp normal respiratory effort GI soft to palpation and non-tender Bimanual Exam - Vag & Uterus: uterus non-tender Uterus Palpation: uterus fundus firm (below Umbilicus) Assessment & Plan (1) Vaginal delivery: COMMENT: IOL twins Di Di Brittaney Keith 38 SM PLAN: Plan s/p PPD # 1 1. routine post delivery care 2. breast feeding- support given 3. rh positive 4. rubella immune
--- NOTE | 2021-12-09 16:01 | DCINST_ITS ---
Discharge Instructions Diet Discharge Diet: No restrictions Activity Discharge Activity: Return to Normal Activity, May Drive, May Shower and May Take a Tub Bath (in 4 weeks) May resume sexual activity in: 6-8 weeks (after seen by OB provider) Weight Bearing Status: Full weight bearing Lifting Restrictions: none Dressing / Incision Call your doctor if you observe: Fever of 101 or Higher, Inability to urinate, Using more than 1 pad per hour (for more than 2 hours in a row or more), Shortness of breath, Dizziness, Chest pain and - (headache not controlled with tylenol, change in vision) Follow Up Care When: in 6 weeks for visit, call the office to make the appointment. If you had elevated blood pressures call the office to be seen within 1 week. Test Results: Test results from this visit will be discussed in further detail at your follow- up appointment, if applicable. Discharge Plan Admission Admit Date/Time: 12/07/21 07:05 Attending Provider: Eun Orourke Primary Care Provider: Filipe López Discharge Orders/Prescriptions Prescriptions: No Action PNV-DHA 27 mg iron-1 mg -300 mg capsule 1 cap PO DAILY aspirin 81 mg Tablet 81 mg PO DAILY Referrals / Follow Up: Filipe López MD [Primary Care Provider] - Disposition Disposition (needs filled in before D/C Order can be placed): Home, Self Care
[2021-12-10 01:58] VITALS: BP 127/83; PULSE 79; O2SAT 98
[2021-12-10 02:00] VITALS: BP 127/83; PULSE 78; RESP 16; TEMP 36.4; O2SAT 98
[2021-12-10 08:19] VITALS: BP 132/81; PULSE 57
[2021-12-10 08:20] VITALS: BP 132/81; PULSE 57; RESP 17; TEMP 36
--- NOTE | 2021-12-10 09:24 | PCM.PN.OB ---
Subjective Subjective Patient doing well without complaints. Tolerating PO. Ambulating and voiding without difficulty. Feeding well. Denies chest pain, shortness of breath, calf pain/swelling, fevers, chills, lightheadedness. Objective Data Objective Data Vital Signs: Vital Signs Temp Pulse Resp BP Pulse Ox O2 Del Method 96.8 F L 57 L 17 132/81 H 98 Room Air 12/10/21 08:20 12/10/21 08:20 12/10/21 08:20 12/10/21 08:20 12/10/21 02:00 12/10/21 08:20 Oxygen Delivery Method Room Air Weight: 177 lb Body Mass Index (BMI) 28.5 Intake & Output: Intake and Output for Last 24 Hours 12/08/21 12/09/21 12/10/21 23:59 23:59 23:59 Intake Total 4346.68 / 4346.68 Output Total 2650 / 2650 Balance 1696.68 / 1696.68 Lab / Micro Data Result Diagrams: 12/07/21 08:00 Micro: Microbiology 12/07/21 08:05 Nasal Secretion SARS-CoV-2 Antigen (Rapid) - Final ROS Constitutional Constitutional: Denies chills, fatigue, fever(s), poor appetite or weakness Eyes Eyes: Denies blurry vision, change in vision, seeing flashes or spots in vision ENT HEENT: Denies dizziness, headache(s), loss taste/smell or sore throat Cardiovascular Cardiovascular: Denies chest pain, dizziness, dyspnea, irregular heart rhythm, palpitations or rapid heart rate Respiratory/Chest Respiratory/Chest: Denies chest tightness, cough, dyspnea or breast pain Gastrointestinal Gastrointestinal: Denies abdominal pain, constipation or vomiting Genitourinary Genitourinary: Denies dysuria or flank pain Musculoskeletal Musculoskeletal: Denies difficulty walking, joint pain, limited range of motion or numbness Neurologic Neurologic: Denies abnormal movements, abnormal speech, dizziness, numbness, seizure-like activity or syncope Psychiatric Psychiatric: Denies anxiety, behavioral changes, change in appetite, confusion, depression or suicidal thoughts Physical Exam Const alert, oriented x3 and no apparent distress General Appearance: cooperative and comfortable Resp normal respiratory effort Cardio regular rate GI normal to inspection, nondistended, normoactive bowel sounds GI Narrative: uterus is firm below umbilicus Palpation: soft Back/Spine no CVA tenderness and thoraco-lumbar ROM normal Extremity normal to inspection, no clubbing, cyanosis or edema, no calf tenderness and no pedal edema Psych mental status grossly normal, thought process normal, cooperative, affect normal, speech normal, activity/motor behavior normal, denies homicidal ideation and denies suicidal ideation Assessment & Plan (1) Vaginal delivery: COMMENT: IOL twins Di Di Brittaney Keith 38 SM (2) ASCUS with positive high risk HPV: COMMENT: plan colp (3) ALMA DELIA (generalized anxiety disorder): COMMENT: counseling, zoloft in past, discussed options. PLAN: Plan s/p PPD # 2 twin delivery - girl and boy! Boy will need to be circumcised by urology due to some kind of curvature problem 1. routine post delivery care 2. breast feeding- support given 3. rh positive 4. rubella immune 5. pt wants to go home today.
[2021-12-10] MEDS: Naproxen 500 MG Tablet PO (09:51)
[2021-12-10] MEDS: Senna/Docusate Sodium 1 Tablet PO (09:51)
[2021-12-13 13:57] LABS: Pathology Specimen OB SEE PATHOLOGY REPORT
[2021-12-13 13:57] LABS: Pathology Specimen OB SEE PATHOLOGY REPORT
== END 2021-12-10 10:55 | disposition home or self-care (01) | DRG 807 ==
PROVIDERS: Admitting Provider Obstetrics & Gynecology; PCP Family Medicine; Visit Provider Obstetrics & Gynecology
DX: O99.344 Other mental disorders complicating childbirth (principal); Z37.2 Twins, both liveborn; O30.003 Twin pregnancy, unspecified number of placenta and unspecified number of amniotic sacs, third trimester; O70.1 Second degree perineal laceration during delivery; F41.1 Generalized anxiety disorder; Z3A.38 38 weeks gestation of pregnancy
CPT/HCPCS: 59025; 59050; 76815; 85025; 86850; 86900; 86901; 87426; 88305; 88307; 99218; J7120; G0378; J3490

== ENCOUNTER → 2022-02-08 | Outpatient (CLI) | payer BC, SELFPAY ==
--- NOTE | 2022-02-08 18:28 | US_ITS ---
STUDY: ULTRASOUND OF THE FEMALE PELVIS - COMPLETE REASON FOR EXAM: Female, 36 years old. IUD placement LMP: Unknown. TECHNIQUE: Transabdominal and Transvaginal TECHNICAL QUALITY: Adequate. COMPARISON: None. FINDINGS: The uterus is anteverted and is in a midline position. The uterus measures 7.5 cm x 4.8cm x 3.1 cm. Normal uterine cervix. The endometrium measures 1.8 mm in thickness, and is . There is no demonstrated endometrial mass. There is no demonstrated myometrial mass. I.U.D. - The patient does have an I.U.D. The right ovary is visualized. The right ovary measures 3.5 cm x 2.4 cm x 2.2 cm. There is no right ovarian cyst or ovarian mass. There is no visualized right adnexal mass or complex lesion. There is normal arterial and normal venous vascularity. The left ovary is visualized. The left ovary measures 3.6 cm x 2.1 cm x 2.2 cm. There is no left ovarian cyst or ovarian mass. There is no visualized left adnexal mass or complex lesion. There is normal arterial and normal venous vascularity. There is minimal fluid in the cul-de-sac. The pre void volume of the bladder was 106.2 ml. US/Pelvic (Non ) IMPRESSION: IUD is seen within the endometrium. Electronically Signed: Richar Cross MD at 11:07 EDT ,
--- NOTE | 2022-02-08 18:28 | US_ITS ---
STUDY: ULTRASOUND OF THE FEMALE PELVIS - COMPLETE REASON FOR EXAM: Female, 36 years old. IUD placement LMP: Unknown. TECHNIQUE: Transabdominal and Transvaginal TECHNICAL QUALITY: Adequate. COMPARISON: None. FINDINGS: The uterus is anteverted and is in a midline position. The uterus measures 7.5 cm x 4.8cm x 3.1 cm. Normal uterine cervix. The endometrium measures 1.8 mm in thickness, and is . There is no demonstrated endometrial mass. There is no demonstrated myometrial mass. I.U.D. - The patient does have an I.U.D. The right ovary is visualized. The right ovary measures 3.5 cm x 2.4 cm x 2.2 cm. There is no right ovarian cyst or ovarian mass. There is no visualized right adnexal mass or complex lesion. There is normal arterial and normal venous vascularity. The left ovary is visualized. The left ovary measures 3.6 cm x 2.1 cm x 2.2 cm. There is no left ovarian cyst or ovarian mass. There is no visualized left adnexal mass or complex lesion. There is normal arterial and normal venous vascularity. There is minimal fluid in the cul-de-sac. The pre void volume of the bladder was 106.2 ml. US/Transvaginal Non- IMPRESSION: IUD is seen within the endometrium. Electronically Signed: Richar Cross MD at 11:07 EDT ,
== END | disposition home or self-care (01) ==
LOC: US 18:25
PROVIDERS: PCP Family Medicine; Visit Provider Nurse Practitioner Women's Health
DX: Z30.430 Encounter for insertion of intrauterine contraceptive device (principal)
CPT/HCPCS: 76830; 76856

== ENCOUNTER 2022-04-14 15:57 | Outpatient (CLI) | payer BC, SELFPAY ==
--- NOTE | 2022-04-14 15:59 | US_ITS ---
STUDY: ULTRASOUND OF THE FEMALE PELVIS - COMPLETE REASON FOR EXAM: Female, 36 years old. IUD placement. LMP: Unknown TECHNIQUE: Transabdominal and Transvaginal TECHNICAL QUALITY: Adequate. COMPARISON: Pelvic ultrasound, February 08, 2022. FINDINGS: The uterus is anteverted and is in a midline position. The uterus measures 6.9 x 4.2 x 2.7 cm. Normal uterine cervix. The endometrium measures 1.3 mm in thickness, and is required. There is no demonstrated endometrial mass. There is no demonstrated myometrial mass. I.U.D. - the IUD is in the fundal and free of metrorrhagia appears to deviate slightly to the right. The right ovary is visualized. The right ovary measures 3.7 x 2.5 x 2.3 cm. There is no right ovarian cyst or ovarian mass. There is no visualized right adnexal mass or complex lesion. There is normal arterial and normal venous vascularity. The left ovary is visualized. The left ovary measures 2.6 x 1.7 x 2.1 cm cm. There is no left ovarian cyst or ovarian mass. There is no visualized left adnexal mass or complex lesion. There is normal arterial and normal venous vascularity. There is no fluid in the cul-de-sac. The pre void volume of the bladder was 544 ml. The urinary bladder appears grossly normal. Polycystic ovary disease: No. US/Pelvic (Non ) IMPRESSION: Intrauterine IUD. This appears to deviate slightly to the right is noted in the similar on the previous study. Otherwise normal exam. Electronically Signed: Werner Wells DO at 22:10 EST ,
== END 2022-04-14 23:59 | disposition home or self-care (01) ==
LOC: US 15:58
PROVIDERS: PCP Family Medicine; Referring Provider Obstetrics & Gynecology; Visit Provider Obstetrics & Gynecology
DX: Z30.430 Encounter for insertion of intrauterine contraceptive device (principal)
CPT/HCPCS: 76830; 76856

== ENCOUNTER → 2022-05-17 | Outpatient (CLI) | payer BC, SELFPAY | END | disposition home or self-care (01) | LOC: LABSPEC 12:04 | PROVIDERS: PCP Family Medicine; Visit Provider Nurse Practitioner Women's Health | DX: N89.8 Other specified noninflammatory disorders of vagina (principal) | CPT/HCPCS: 87070; 87205 ==

== ENCOUNTER → 2022-08-17 | Outpatient (CLI) | payer BC, SELFPAY | END | disposition home or self-care (01) | LOC: LABSPEC 16:40 | PROVIDERS: PCP Family Medicine; Visit Provider Nurse Practitioner Women's Health | DX: N89.8 Other specified noninflammatory disorders of vagina (principal) | CPT/HCPCS: 87070; 87205 ==

== ENCOUNTER → 2023-01-19 | Outpatient (CLI) | payer BC, SELFPAY | END | disposition home or self-care (01) | LOC: LABSPEC 17:03 | PROVIDERS: PCP Family Medicine; Referring Provider Registered Nurse; Visit Provider Registered Nurse | DX: N89.8 Other specified noninflammatory disorders of vagina (principal) | CPT/HCPCS: 87070; 87205 ==

== ENCOUNTER → 2023-06-19 | Outpatient (CLI) | payer BC, SELFPAY ==
--- NOTE | 2023-06-19 15:46 | US_ITS ---
STUDY: ULTRASOUND OF THE FEMALE PELVIS - COMPLETE REASON FOR EXAM: Female, 37 years old. IUD placement LMP: 06/08/2023 TECHNIQUE: Transabdominal and Transvaginal TECHNICAL QUALITY: Adequate. COMPARISON: None. FINDINGS: The uterus is anteverted and is in a midline position. The uterus measures 8.1 x 4.9 x 3.6 cm. Normal uterine cervix. The endometrium measures 4 mm in thickness, and is hyperechoic. There is no demonstrated endometrial mass. There is no demonstrated myometrial mass. I.U.D. - The patient does have an I.U.D. IUD noted in satisfactory position The right ovary is visualized. The right ovary measures 3.2 x 2.2 x 1.9 cm. There is no right ovarian cyst or ovarian mass. There is no visualized right adnexal mass or complex lesion. There is normal arterial and normal venous vascularity. There is a simple 1.3 cm follicular cyst. The left ovary is visualized. The left ovary measures 3.3 x 2.7 x 1.9 cm. There is no left ovarian cyst or ovarian mass. There is no visualized left adnexal mass or complex lesion. There is normal arterial and normal venous vascularity.There is a simple 1.4 cm follicular cyst. There is no fluid in the cul-de-sac. The bladder is sonographically normal Polycystic ovary disease: No. US/Pelvic w/ Transvaginal IMPRESSION: IUD noted in satisfactory position Sonographically normal uterus and ovaries Electronically Signed: Mario Jimenez MD at 16:36 EST ,
--- OUTSIDE RECORDS SUMMARY | 2023-06-19 16:11 | XMS RPT_ITS | CCD ---
Author Name Unknown Address [address] [place] [id number] Organization [facility] Care Team Providers Care Copper Plate Printer Name Role Phone Bebe López MD Primary Care Provider BEBE LÓPEZ Referring Unavailab BEBE Quevedo Primary Care Unavailab BEBE Quevedo Primary Care Unavailab BEBE Quevedo Primary Care Unavailab BEBE Quevedo Primary Care Unavailab BEBE Quevedo Primary Care Unavailab BEBE Quevedo Attending Unavailab BEBE Quevedo Primary Care Unavailab BEBE Quevedo Primary Care Unavailab BEBE Quevedo Primary Care Unavailab BEBE Quevedo Attending Unavailab BEBE Quevedo Primary Care Unavailab fabby PODLOGGHULAM WHITNEY Attending Unavailable BEBE LÓPEZ Primary Care Unavailab le DESIREE VALIENTE Referring Unavailable BEBE LÓPEZ Primary Care Unavailab le Medications Current Medications Medication Drug Class(es) Dates Sig (Normalized) Sig (Original) amoxicillin 500 mg oral capsule (4 sources) Penicillin-class Antibacterial Start: 05-05-2023 End: 05-15-2023 take 1 capsule by mouth twice daily amoxicillin (AMOXIL) 500 mg capsule Take 1 capsule by mouth two times a day for 10 days. 20 capsule 0 05/05/2023 05/15/2023 Active Completed/Discontinued Medications Medication Drug Class(es) Dates Sig (Normalized) Sig (Original) lactobacillus acidophilus 460 mg oral capsule (1 source) Start: 05-05-2023 take 1 capsule by mouth once daily Lactobacillus acidophilus (FLORAJEN ACIDOPHILUS) 20 billion cell capsule Take 1 capsule by mouth once daily. 30 capsule 0 05/05/2023 Active Problems Problem Classification Problem Date Documented Da te Episodic/Chronic Anxiety disorders (7 sources) Generalized anxiety disorder; Translations: [Generalized anxiety disorder] Onset: 05-28-2015 08-20-2017 Chronic Headache; including migraine (1 source) Primary thunderclap headache; Translations: [Thunderclap headache] Onset: 06-15-2023 Episodic Immunizations and screening for infectious disease (2 sources) Suspected disease caused by 2019-nCoV; Translations: [Suspected COVID-19 virus infection] Episodic Other skin disorders (1 source) Localized swelling, mass and lump, unspecified; Translations: [Subcutaneous nodule] Onset: 05-14-2023 Episodic Other skin disorders (1 source) Rash and other nonspecific skin eruption; Translations: [Skin eruption] Onset: 05-14-2023 Episodic Other upper respiratory infections (9 sources) Sore throat symptom; Translations: [Acute pharyngitis, unspecified] Episodic Unclassified (1 source) Suspected COVID-19 virus infection; Translations: [Suspected COVID-19 virus infection] Onset: 09-19-2022 Results Test Name Value Interpretation Reference Range Facil ity Vital Signs Date Time Vital Sign Value Performing Clinician Faci lity 05-05-2023 10:06-0500 Body temperature 98.01 [degF] Edy Valdez APRN.INSTRUCTOR TAP DANCING Work Phone: [facility] 05-05-2023 10:06-0500 Body weight 61.24 kg Edy Valdez APRN.INSTRUCTOR TAP DANCING Work Phone: [facility] 05-05-2023 10:06-0500 Diastolic blood pressure 74 mm[Hg] Edy Valdez INSPECTOR PACKER GLASS CONTAINER.INSTRUCTOR TAP DANCING Work Phone: [facility] 05-05-2023 10:06-0500 Heart rate 81 /min Edy Valdez INSPECTOR PACKER GLASS CONTAINER.INSTRUCTOR TAP DANCING Work Phone: [facility] 05-05-2023 10:06-0500 Respiratory rate 16 /min Edy Valdez APRN.INSTRUCTOR TAP DANCING Work Phone: [facility] 05-05-2023 10:06-0500 SaO2% (BldA) [Mass fraction] 100 % Edy Pendlebury INSPECTOR PACKER GLASS CONTAINER.INSTRUCTOR TAP DANCING Work Phone: [facility] 05-05-2023 10:06-0500 Systolic blood pressure 100 mm[Hg] Edy [facility] INSPECTOR PACKER GLASS CONTAINER.INSTRUCTOR TAP DANCING Work Phone: [facility] 04-20-2023 12:50-0500 Body temperature 97.9 [degF] [facility] INSPECTOR PACKER GLASS CONTAINER.INSTRUCTOR TAP DANCING Work Phone: [facility] 04-20-2023 12:50-0500 Body weight 61.33 kg [facility] INSPECTOR PACKER GLASS CONTAINER.INSTRUCTOR TAP DANCING Work Phone: [facility] 04-20-2023 12:50-0500 Diastolic blood pressure 71 mm[Hg] [facility] INSPECTOR PACKER GLASS CONTAINER.INSTRUCTOR TAP DANCING Work Phone: [facility] 04-20-2023 12:50-0500 Heart rate 68 /min [facility] INSPECTOR PACKER GLASS CONTAINER.INSTRUCTOR TAP DANCING Work Phone: [facility] 04-20-2023 12:50-0500 Respiratory rate 18 /min [facility] INSPECTOR PACKER GLASS CONTAINER.INSTRUCTOR TAP DANCING Work Phone: [facility] 04-20-2023 12:50-0500 SaO2% (BldA) [Mass fraction] 100 % [facility] INSPECTOR PACKER GLASS CONTAINER.INSTRUCTOR TAP DANCING Work Phone: [facility] 04-20-2023 12:50-0500 Systolic blood pressure 109 mm[Hg] [facility] INSPECTOR PACKER GLASS CONTAINER.INSTRUCTOR TAP DANCING Work Phone: [facility] 01-30-2023 08:26-0400 Body temperature 99.1 [degF] Basilia Athy PA-C Work Phone: [facility] 01-30-2023 08:26-0400 Body weight 58.15 kg Basilia Athy PA-C Work Phone: [facility] 01-30-2023 08:26-0400 Diastolic blood pressure 64 mm[Hg] Basilia Athy PA-C Work Phone: [facility] 01-30-2023 08:26-0400 Heart rate 110 /min Basilia Athy PA-C Work Phone: [facility] 01-30-2023 08:26-0400 Respiratory rate 18 /min Basilia Athy PA-C Work Phone: [facility] 01-30-2023 08:26-0400 SaO2% (BldA) [Mass fraction] 98 % Basilia Athy PA-C Work Phone: [facility] 01-30-2023 08:26-0400 Systolic blood pressure 102 mm[Hg] Basilia Athy PA-C Work Phone: [facility] 11-15-2022 13:32-0400 Body temperature 98.4 [degF] Basilia Athy PA-C Work Phone: [facility] 11-15-2022 13:32-0400 Body weight 59.88 kg Basilia Athy PA-C Work Phone: [facility] 11-15-2022 13:32-0400 Diastolic blood pressure 72 mm[Hg] Basilia Athy PA-C Work Phone: [facility] 11-15-2022 13:32-0400 Heart rate 72 /min Basilia Athy PA-C Work Phone: [facility] 11-15-2022 13:32-0400 Respiratory rate 16 /min Basilia Athy PA-C Work Phone: [facility] 11-15-2022 13:32-0400 SaO2% (BldA) [Mass fraction] 98 % Basilia Athy PA-C Work Phone: [facility] 11-15-2022 13:32-0400 Systolic blood pressure 120 mm[Hg] Basilia Athy PA-C Work Phone: [facility] 09-27-2022 11:43-0400 Body temperature 97.11 [degF] Krislyn Aberegg PA Work Phone: [facility] 09-27-2022 11:43-0400 Body weight 61.24 kg Krislyn Aberegg PA Work Phone: [facility] 09-27-2022 11:43-0400 Diastolic blood pressure 70 mm[Hg] Krislyn Aberegg PA Work Phone: [facility] 09-27-2022 11:43-0400 Heart rate 74 /min Krislyn Aberegg PA Work Phone: [facility] 09-27-2022 11:43-0400 Respiratory rate 16 /min Krislyn Aberegg PA Work Phone: [facility] 09-27-2022 11:43-0400 SaO2% (BldA) [Mass fraction] 99 % Krislyn Aberegg PA Work Phone: [facility] 09-27-2022 11:43-0400 Systolic blood pressure 122 mm[Hg] Krislyn Aberegg PA Work Phone: [facility] 09-19-2022 14:45-0400 Body temperature 97.7 [degF] Bebe López MD Work Phone: [facility] 09-19-2022 14:45-0400 Diastolic blood pressure 68 mm[Hg] Bebe López MD Work Phone: [facility] 09-19-2022 14:45-0400 Heart rate 83 /min Bebe López MD Work Phone: [facility] 09-19-2022 14:45-0400 Respiratory rate 16 /min Bebe López MD Work Phone: [facility] 09-19-2022 14:45-0400 SaO2% (BldA) [Mass fraction] 97 % Bebe López MD Work Phone: [facility] 09-19-2022 14:45-0400 Systolic blood pressure 110 mm[Hg] Bebe López MD Work Phone: [facility] 08-30-2022 09:31-0400 Body temperature 98.01 [degF] Krislyn Aberegg PA Work Phone: [facility] 08-30-2022 09:31-0400 Body weight 61.87 kg Krislyn Aberegg PA Work Phone: [facility] 08-30-2022 09:31-0400 Diastolic blood pressure 80 mm[Hg] Krislyn Aberegg PA Work Phone: [facility] 08-30-2022 09:31-0400 Heart rate 85 /min Krislyn Aberegg PA Work Phone: [facility] 08-30-2022 09:31-0400 Respiratory rate 16 /min Krislyn Aberegg PA Work Phone: [facility] 08-30-2022 09:31-0400 SaO2% (BldA) [Mass fraction] 98 % Krislyn Aberegg PA Work Phone: [facility] 08-30-2022 09:31-0400 Systolic blood pressure 122 mm[Hg] Krislyn Aberegg PA Work Phone: [facility] Encounters Encounter Date Encounter Type Care Provider Facility Start: 06-15-2023 ambulatory BEBE LÓPEZ acility:[id number] Start: 06-14-2023 End: 06-14-2023 ambulatory BEBE LÓPEZ Facility:[facility] Start: 05-14-2023 End: 05-15-2023 [facility] BEBE LÓPEZ Facility:[facility] Start: 05-05-2023 End: 05-05-2023 ambulatory BEBE LÓPEZ Facility:[facility] Start: 05-05-2023 End: 05-05-2023 Office outpatient visit 25 minutes Edy Valdez APRN.INSTRUCTOR TAP DANCING Work Phone: [facility] Procedures Date Procedure Procedure Detail Performing Clinician Start: 05-05-2023 STREP A MOLECULAR (POC) [facility] Provider Start: 04-20-2023 STREP A MOLECULAR (POC) Wilma Garcia APRN.CNP Work Phone: Start: 11-15-2022 STREP A MOLECULAR (POC) Basilia Foss PA-C Work Phone: Start: 09-27-2022 STREP A MOLECULAR (POC) Fariba Sweeney INSPECTOR PACKER GLASS CONTAINER.INSTRUCTOR TAP DANCING Work Phone: Start: 08-30-2022 STREP A MOLECULAR (POC) Basilia Foss PA-C Work Phone: Plan of Treatment Date Care Activity Detail Author Start: 10-22-2031 Urine microalbumin profile DTaP,Tdap,Td Vaccine (3 - Td or Tdap) [facility] Start: 05-01-2027 Urine microalbumin profile DTAP,TDAP,TD (2 - Td or Tdap) [facility] Start: 01-26-2023 Covid-19 Vaccine () Covid-19 Vaccine ( season) [facility] Start: 01-26-2023 Influenza vaccination [facility] Start: 05-28-2022 DEPRESSION ASSESSMENT DEPRESSION ASSESSMENT [facility] Start: 12-26-2021 PAP TESTING PAP TESTING [facility] Start: 10-03-2021 COVID-19 VACCINE (5 - Booster) COVID-19 VACCINE (5 - Booster) [facility] Start: 10-03-2021 COVID-19 VACCINE (5 - Pfizer series) COVID-19 VACCINE (5 - Pfizer series) [facility] Start: 11-06-2017 HPV TESTING HPV TESTING [facility] Start: 1985 HEPATITIS B (1 of 3 - 3-dose series) HEPATITIS B (1 of 3 - 3-dose series) [facility] Start: 1985 Hepatitis B Vaccine (1 of 3 - 3-dose series) Hepatitis B Vaccine (1 of 3 - 3-dose series) [facility] Influenza virus A an d B RNA and SARS-CoV-2 (COVID-19) N gene panel - Respiratory specimen by KAVON with probe detection COVID & INFLUENZA A/B NAAT, ROUTINE Microbiology Routine Suspected COVID-19 virus infection 01/30/2023 9:40 AM EDT [facility] Work Phone: SARS-CoV-2 (COVID-19 ) RNA [Presence] in Respiratory specimen by KAVON with probe detection 2019 CORONAVIRUS Microbiology Routine Suspected COVID-19 virus infection 09/19/2022 3:12 PM EDT [facility] Work Phone: STREP A MOLECULAR (POC) STREP A MOLECULAR (POC) Microbiology Routine Sore throat Ordered: 05/05/[address] [facility] Work Phone: Immunizations Immunization Date Immunization Notes Care Provider Margoth yo 10-04-2020 COVID-19 original vaccine, age 12+ yr, monovalent (PFIZER-BIONTECH - PURPLE TOP) Belkis HAYNES Work Phone: [facility] 09-13-2020 COVID-19 original vaccine, age 12+ yr, monovalent (PFIZER-BIONTECH - PURPLE TOP) Belkis HAYNES Work Phone: [facility] 03-03-2019 influenza, injectabl e, quadrivalent, contains preservative Belkis HAYNES Work Phone: [facility] 03-03-2019 influenza virus vaccine, unspecified formulation Edy Valdez APRN.CNP Work Phone: [facility] 05-01-2017 tetanus toxoid, redu cheyanne diphtheria toxoid, and acellular pertussis vaccine, adsorbed Belkis HAYNES Work Phone: [facility] Payers Date Payer Category Payer Unknown MARIBELL MELTON PPO [id number] 2022-Present [phone] [address] [place] [address] PPO [id number] 2022 Unknown [id number] 2020 Private Health Insurance TERESA WALLACE OAP [id number] 2020-Present [phone] [address] [place] [id number] Open Access [id number] 2020 Private Health Insurance [id number] Social History Date Type Detail Facility Start: 08-30-2022 Tobacco smoking stat us NHIS Never smoked tobacco [facility] Start: 08-30-2022 Tobacco use and exposure Smoke less tobacco non-user [facility] Start: 08-30-2022 End: 05-05-2023 Alcohol intake Current drinker of alcohol (finding) [facility] Start: 05-02-2020 End: 08-30-2022 Alcohol intake [facility] Start: 1985 Sex Assigned At Not on file [facility] Start: 05-02-2020 End: 01-30-2023 Tobacco use panel [facility] National Score (1-10 0), lower number is lower risk Not on file [facility] Clinical Notes 08-30-2022 to 06-15-2023 Edy Valdez, INSPECTOR PACKER GLASS CONTAINER.INSTRUCTOR TAP DANCING - 05/05/2023 10:20 AM Edy Arreguin, GARCIA.INSTRUCTOR TAP DANCING - 04/20/2023 12:52 PM Basilia Ceballos PA-C - 01/30/2023 9:01 AM Alla Foss PA-C - 11/15/2022 3:05 PM EDT Note Date & Type Note Facility 06-15-2023 Note HNO ID: [id number] Author: SIVAN VEGA RT(R) Service: ? Author Type: Technologist Type: Progress Notes Filed: 06/15/2023 15:42 Note Text: Summary: MRI Radiology Service Progress Note PATIENT NAME: Jana Morales DATE OF SERVICE: June 15, 2023 TIME: 3:42 PM PATIENT IDENTITY VERIFICATION COMPLETED USING TWO (2) IDENTIFIERS: Name and Date of confirmed by patient verbally. FALL SCREENING: Has the patient had 2 falls in the last year or 1 fall with injury or currently using an Ambulatory Assistive Device (Walker, Cane, Wheelchair, Crutches, etc.)? No PATIENT GENDER DATA: Female. status: : No status: NO. PATIENT RELEVANT IMPLANT DATA REVIEWED: Yes RADIOLOGY DEPARTMENT: MR; Exam(s) Completed: Head: Routine Brain PERIPHERAL IV DATA: Not applicable SIGNED BY: RT Bartolo(R) June 15, 2023 3:42 PM [facility] 06-14-2023 Note HNO ID: [id number] Author: BEBE LÓPEZ MD Service: ? Author Type: Physician Type: Progress Notes Filed: 06/15/2023 08:33 Note Text: Chief Complaint Patient presents with: Headache: Woke up with headache Sunday. Eye Problem: Reports visual disturbance- similar to vertigo HPI Jana Morales is a 37 year old female who presents here today for Above Complaints. Patient here today with complaint of headache which woke her up Sunday morning. Described as pulsating pain over her left occipital region. Intense to the point that it was hard for her to think for about 5 minutes, but then started to improve. Now is complaining of a generalized headache, currently 6/10, with radiation into her neck and shoulders. Associated with mild vertigo, photophobia, phonophobia. Not taking anything OTC for headache. No relieving factors noted. Denies fall or recent headache, nausea, vomiting, history of migraine or family history of migraines, vision changes, slurred speech, vision changes, facial droop, numbness, tingling, weakness. Past medical history, appointments, medications, allergies reviewed. Previous Medical History PAST MEDICAL HISTORY Diagnosis Date ALMA DELIA (generalized anxiety disorder) 2015 Kidney infection 1992 Previous Surgical History PAST SURGICAL HISTORY Procedure Laterality Date INSERTION OF IUD 06/2014 SKIN BIOPSY HX N/A 1996 Head Family History FAMILY HISTORY Problem Relation Age of Onset Lipids Mother GI Mother gut bacteria Cancer Mother skin Cancer Father skin other (anxiety) Sister Alzheimer's Disease Maternal Grandmother Diabetes Maternal Grandfather other (parkinsons) Maternal Grandfather Breast Cancer Paternal Grandmother in her 50s Cancer Paternal Grandfather leukemia Patient Allergies ALLERGIES No Known Allergies Current Medications Current Outpatient Medications on File Prior to Visit Medication Sig Lactobacillus acidophilus (FLORAJEN ACIDOPHILUS) 20 billion cell capsule Take 1 capsule by mouth once daily. ondansetron orally disintegrating (ZOFRAN ODT) 4 mg disintegrating tablet Take 1 tablet by mouth every 8 hours as needed for nausea/vomiting. (Patient not taking: Reported on 10/12/2022) No current facility-administered medications on file prior to visit. Social History Social History Tobacco Use Smoking status: Never Smokeless tobacco: Never Substance Use Topics Alcohol use: Yes Alcohol/week: 2.0 standard drinks of alcohol Types: 2 Glasses of Wine (5oz) per week Drug use: No Review of Symptoms REVIEW OF SYSTEMS See HPI EXAM: BP 126/74 Pulse 70 Resp 16 Wt 62.3 kg (137 lb 6.4 oz) LMP (LMP Unknown) SpO2 98% BMI 20.59 kg/m? General Appearance: Well appearing, alert, in no acute distress, well-hydrated, well nourished.. Skin: Skin color, texture, turgor normal, no suspicious rashes or lesions. Lungs: Lungs clear to auscultation. No wheezing, rhonchi, rales.. Heart: RRR without murmur, gallop, or rubs. No ectopy. Neurologic: Negative findings: speech normal, mental status intact, cranial nerves 2-12 intact, muscle tone normal, muscle strength normal, sensation to light touch and pinprick normal, reflexes normal and symmetric. Health Maintenance List Hepatitis B Vaccine(1 of 3 - 3-dose series) Never done HPV Testing Never done Pap Testing due on 12/26/2021 Influenza Vaccine(1) due on 01/26/2023 Covid-19 Vaccine(2022- season) due on 01/26/2023 Depression Assessment Never done DTaP,Tdap,Td Vaccine(3 - Td or Tdap) due on 10/22/2031 Hepatitis C Screening Completed HIV Screening Completed HPV Vaccine Aged Out ASSESSMENT/PLAN: 1. Headache, unspecified headache type - ICD9: 784.0, ICD10: R51.9 (primary diagnosis) Suspect migraine headache. Will start NSAIDs and have patient call if not improving in 1-2 days. With sudden onset of severe headache consistent with thunderclap, will obtain STAT MRI to rule out intracranial hemorrhage. Neuro exam today is normal. Red flags for re-assessment reviewed with patient in detail. Discussed keeping headache diary, avoiding headache triggers. - NAPROXEN 500 MG TABLET 2. Thunderclap headache - ICD9: 784.0, ICD10: G44.53 See above. - MRI BRAIN WO EDIE Bebe López MD [facility] 05-14-2023 Note HNO ID: [id number] Author: Ghulam Donovan APRN.INSTRUCTOR TAP DANCING Service: ? Author Type: Nurse Practitioner Type: Progress Notes Filed: 05/14/2023 9:25 AM Note Text: 05/14/2023 Patient presents with: Derm Problem: Lump to right leg, has been there for a few months. Not painful. Gets small bumps to fingers that come and go, are painful. SUBJECTIVE: This is a 37 year old that is here today for Above Complaints. Noticed a pea sized lump to right upper le Area is not. Denies redness, warmth, or drainage from area Bumps on hands ONSET: nine months LOCATION: hands- can be painful DURATION: intermittent CHARACTERISTICS: can be painful to touch AGGRAVATING FEATURES: nothing ALLEVIATING FEATURES: has not uses anything Recent Illness: no Fevers: no Any recent travel: no Contacts with same rashes: no Hx of eczema: no Hx of psoriasis: no Recent Tanning: no Any new: Lotions: no Detergents: no Soaps: no Make up: no Clothing: no Bedding: no Medications: no PAST MEDICAL HISTORY Diagnosis Date ALMA DELIA (generalized anxiety disorder) 2016 Kidney infection 1993 ALLERGIES Patient has no known allergies. MEDICATIONS Current Outpatient Medications Medication Sig amoxicillin (AMOXIL) 500 mg capsule Take 1 capsule by mouth two times a day for 10 days. Lactobacillus acidophilus (FLORAJEN ACIDOPHILUS) 20 billion cell capsule Take 1 capsule by mouth once daily. ondansetron orally disintegrating (ZOFRAN ODT) 4 mg disintegrating tablet Take 1 tablet by mouth every 8 hours as needed for nausea/vomiting. (Patient not taking: Reported on 10/12/2022) No current facility-administered medications for this visit. Medications and allergies reviewed by this provider. SOCIAL HISTORY Social History Tobacco Use Smoking status: Never Smokeless tobacco: Never Substance Use Topics Alcohol use: Yes Alcohol/week: 2.0 standard drinks of alcohol Types: 2 Glasses of Wine (5oz) per week Drug use: No REVIEW OF SYSTEMS All other reviewed and negative other than HPI. OBJECTIVE: BP 116/78 Pulse 75 Resp 18 Wt 61.9 kg (136 lb 6.4 oz) LMP (LMP Unknown) SpO2 98% BMI 20.44 kg/m? . Vital signs reviewed by this provider. APPEARANCE Well appearing, alert, in no acute distress, well-hydrated, well nourished. HANDS. Three scattered pin ponit flesh colored papules. No TTP, surrounding erythema excessive warmth or drainage RIGHT THIGH: anterior with pea sized mobile subcutaneous nodule Hepatitis B Vaccine(1 of 3 - 3-dose series) Never done HPV Testing Never done Pap Testing due on 12/26/2021 Depression Assessment Never done Influenza Vaccine(1) due on 01/26/2023 Covid-19 Vaccine( season) due on 01/26/2023 DTaP,Tdap,Td Vaccine(3 - Td or Tdap) due on 10/22/2031 Hepatitis C Screening Completed HIV Screening Completed HPV Vaccine Aged Out ASSESSMENT/PLAN: 1. Subcutaneous nodule - ICD9: 782.2, ICD10: R22.9 (primary diagnosis) - possible lipoma vs cyst - no red flag symptoms or exam findings - red flag symptoms discussed, verbalizes understanding - offered ultrasound, patient declined, will continue to monitor - follow-up as needed 2. Skin eruption - ICD9: 782.1, ICD10: R21 - unknown etiology - no red flag symptoms or exam findings - red flag symptoms discussed, verbalizes understanding - would recommend dermatology is persist or worsen, to ER with red flag symptoms Ghulam Podlogar, INSPECTOR PACKER GLASS CONTAINER.INSTRUCTOR TAP DANCING Prescription instructions reviewed with patient as applicable. Patient advised if symptoms do not improve or if symptoms worsen sooner, to contact their primary care physician. Potential red flag symptoms discussed with the patient. Reviewed appropriate action plan to take if red flag symptoms occur. Patient agreeable to treatment plan. I spent a total of 20 minutes on the date of the service which included preparing to see the patient, [id number] patient care, completing clinical documentation, obtaining and/or reviewing separately obtained history, performing a medically appropriate examination, counseling and educating the patient/family/caregiver, and ordering medications, tests, or procedures. [facility] 05-05-2023 Note HNO ID: [id number] Author: Edy Valdez APRN.INSTRUCTOR TAP DANCING Service: ? Author Type: Nurse Practitioner Type: Progress Notes Filed: 05/05/2023 10:35 AM Note Text: Subjective HPI Nontoxic-appearing female presents urgent care chief complaint flulike symptoms. Duration of symptoms 2 days. Associated symptoms sore throat headache Sore throat is a new symptom and is most prominent symptom today. Sick contacts similar signs symptoms. Was seen by me April 20. Diagnosed with strep throat. Placed on amoxicillin. Symptoms did resolve. New symptoms started 2 days ago. No OTC medications used today. Denies any fever body aches chills productive cough chest pain shortness of breath pleuritic pain hemoptysis nausea vomiting abdominal pain change in bowel or bladder habits. Past medical history prescription medication use and allergies reviewed. Denies chance of . Is not breast-feeding. .Patient presents with: Sore Throat: X2 days PAST MEDICAL HISTORY Diagnosis Date ALMA DELIA (generalized anxiety disorder) 2015 Kidney infection 1992 PAST SURGICAL HISTORY Procedure Laterality Date INSERTION OF IUD 06/2014 SKIN BIOPSY HX N/A 1995 Head ALLERGIES Patient has no known allergies. MEDICATIONS ondansetron orally disintegrating (ZOFRAN ODT) 4 mg disintegrating tablet Take 1 tablet by mouth every 8 hours as needed for nausea/vomiting. (Patient not taking: Reported on 10/12/2022) FAMILY HISTORY Problem Relation Age of Onset Lipids Mother GI Mother gut bacteria Cancer Mother skin Cancer Father skin other (anxiety) Sister Alzheimer's Disease Maternal Grandmother Diabetes Maternal Grandfather other (parkinsons) Maternal Grandfather Breast Cancer Paternal Grandmother in her 50s Cancer Paternal Grandfather leukemia Social History Tobacco Use Smoking status: Never Smokeless tobacco: Never Substance Use Topics Alcohol use: Yes Alcohol/week: 2.0 standard drinks of alcohol Types: 2 Glasses of Wine (5oz) per week Drug use: No BP 100/74 Pulse 81 Temp 36.7 ?C (98 ?F) Resp 16 Wt 61.2 kg (135 lb) LMP (LMP Unknown) SpO2 100% BMI 20.23 kg/m? Review of Systems Constitutional: Negative for chills, fever and malaise/fatigue. HENT: Positive for sore throat. Negative for congestion, ear discharge, ear pain and sinus pain. Eyes: Negative for blurred vision, pain, discharge and redness. Respiratory: Negative for cough, hemoptysis, sputum production, shortness of breath, wheezing and stridor. Cardiovascular: Negative for chest pain. Gastrointestinal: Negative for abdominal pain, diarrhea, nausea and vomiting. Musculoskeletal: Negative for myalgias. Skin: Negative for itching and rash. Neurological: Positive for headaches. Negative for dizziness. Objective Physical Exam Constitutional: General: She is not in acute distress. Appearance: She is not diaphoretic. HENT: Head: Normocephalic. Jaw: No trismus, tenderness, swelling or pain on movement. Nose: Nose normal. Mouth/Throat: Mouth: Mucous membranes are moist. Pharynx: Oropharynx is clear. Uvula midline. Posterior oropharyngeal erythema present. No pharyngeal swelling, oropharyngeal exudate or uvula swelling. Eyes: Conjunctiva/sclera: Conjunctivae normal. Pupils: Pupils are equal, round, and reactive to light. Cardiovascular: Rate and Rhythm: Normal rate and regular rhythm. Heart sounds: Normal heart sounds. Pulmonary: Effort: Pulmonary effort is normal. No tachypnea, accessory muscle usage or respiratory distress. Breath sounds: Normal breath sounds. No stridor. No wheezing, rhonchi or rales. Musculoskeletal: Cervical back: Normal range of motion and neck supple. No edema, erythema, rigidity or tenderness. No pain with movement. Normal range of motion. Lymphadenopathy: Cervical: No cervical adenopathy. Skin: General: Skin is warm and dry. Neurological: Mental Status: She is alert and oriented to person, place, and time. ASSESSMENT/PLAN: 1. Sore throat - ICD9: 462, ICD10: J02.9 (primary diagnosis) - STREP A MOLECULAR (POC) 2. Strep pharyngitis - ICD9: 034.0, ICD10: J02.0 Diagnosis strep pharyngitis. Placed on amoxicillin. Additionally suspicious of viral illness accompanied with strep pharyngitis. We discussed supportive therapies. Patient will follow up with primary care provider as needed. Patient was instructed to immediately proceed to emergency room for any new, worsening, or symptoms lasting longer than anticipated. The patient's clinical presentation is otherwise unremarkable at this time. Based on exam and clinical finding, the patient is stable for discharge. Plan of care was discussed with patient. Patient verbalizes understanding and agrees to plan of care. This note was generated using [employer] software. It may contain errors in wording, punctuation, or spelling. Edy Valdez APRN.INSTRUCTOR TAP DANCING [facility] 05-05-2023 History of Presen t illness Narrative Subjective HPI Nontoxic-appearing female presents urgent care chief complaint flulike symptoms. Duration of symptoms 2 days. Associated symptoms sore throat headache Sore throat is a new symptom and is most prominent symptom today. Sick contacts similar signs symptoms. Was seen by me April 20. Diagnosed with strep throat. Placed on amoxicillin. Symptoms did resolve. New symptoms started 2 days ago. No OTC medications used today. Denies any fever body aches chills productive cough chest pain shortness of breath pleuritic pain hemoptysis nausea vomiting abdominal pain change in bowel or bladder habits. Past medical history prescription medication use and allergies reviewed. Denies chance of . Is not breast-feeding. .Patient presents with: Sore Throat: X2 days PAST MEDICAL HISTORY Diagnosis Date ALMA DELIA (generalized anxiety disorder) 2015 Kidney infection 1992 PAST SURGICAL HISTORY Procedure Laterality Date INSERTION OF IUD 06/2014 SKIN BIOPSY HX N/A 1995 Head ALLERGIES Patient has no known allergies. MEDICATIONS ondansetron orally disintegrating (ZOFRAN ODT) 4 mg disintegrating tablet Take 1 tablet by mouth every 8 hours as needed for nausea/vomiting. (Patient not taking: Reported on 10/12/2022) FAMILY HISTORY Problem Relation Age of Onset Lipids Mother GI Mother gut bacteria Cancer Mother skin Cancer Father skin other (anxiety) Sister Alzheimer's Disease Maternal Grandmother Diabetes Maternal Grandfather other (parkinsons) Maternal Grandfather Breast Cancer Paternal Grandmother in her 50s Cancer Paternal Grandfather leukemia Social History Tobacco Use Smoking status: Never Smokeless tobacco: Never Substance Use Topics Alcohol use: Yes Alcohol/week: 2.0 standard drinks of alcohol Types: 2 Glasses of Wine (5oz) per week Drug use: No BP 100/74 Pulse 81 Temp 36.7 C (98 F) Resp 16 Wt 61.2 kg (135 lb) LMP (LMP Unknown) SpO2 100% BMI 20.23 kg/m Review of Systems Constitutional: Negative for chills, fever and malaise/fatigue. HENT: Positive for sore throat. Negative for congestion, ear discharge, ear pain and sinus pain. Eyes: Negative for blurred vision, pain, discharge and redness. Respiratory: Negative for cough, hemoptysis, sputum production, shortness of breath, wheezing and stridor. Cardiovascular: Negative for chest pain. Gastrointestinal: Negative for abdominal pain, diarrhea, nausea and vomiting. Musculoskeletal: Negative for myalgias. Skin: Negative for itching and rash. Neurological: Positive for headaches. Negative for dizziness. Objective Physical Exam Constitutional: General: She is not in acute distress. Appearance: She is not diaphoretic. HENT: Head: Normocephalic. Jaw: No trismus, tenderness, swelling or pain on movement. Nose: Nose normal. Mouth/Throat: Mouth: Mucous membranes are moist. Pharynx: Oropharynx is clear. Uvula midline. Posterior oropharyngeal erythema present. No pharyngeal swelling, oropharyngeal exudate or uvula swelling. Eyes: Conjunctiva/sclera: Conjunctivae normal. Pupils: Pupils are equal, round, and reactive to light. Cardiovascular: Rate and Rhythm: Normal rate and regular rhythm. Heart sounds: Normal heart sounds. Pulmonary: Effort: Pulmonary effort is normal. No tachypnea, accessory muscle usage or respiratory distress. Breath sounds: Normal breath sounds. No stridor. No wheezing, rhonchi or rales. Musculoskeletal: Cervical back: Normal range of motion and neck supple. No edema, erythema, rigidity or tenderness. No pain with movement. Normal range of motion. Lymphadenopathy: Cervical: No cervical adenopathy. Skin: General: Skin is warm and dry. Neurological: Mental Status: She is alert and oriented to person, place, and time. ASSESSMENT/PLAN: 1. Sore throat - ICD9: 462, ICD10: J02.9 (primary diagnosis) - STREP A MOLECULAR (POC) 2. Strep pharyngitis - ICD9: 034.0, ICD10: J02.0 Diagnosis strep pharyngitis. Placed on amoxicillin. Additionally suspicious of viral illness accompanied with strep pharyngitis. We discussed supportive therapies. Patient will follow up with primary care provider as needed. Patient was instructed to immediately proceed to emergency room for any new, worsening, or symptoms lasting longer than anticipated. The patient's clinical presentation is otherwise unremarkable at this time. Based on exam and clinical finding, the patient is stable for discharge. Plan of care was discussed with patient. Patient verbalizes understanding and agrees to plan of care. This note was generated using [employer] software. It may contain errors in wording, punctuation, or spelling. Edy Valdez APRN.INSTRUCTOR TAP DANCING documented in this encounter [facility] 04-20-2023 Note HNO ID: [id number] Author: Edy Valdez APRN.SHARATH Service: ? Author Type: Nurse Practitioner Type: Progress Notes Filed: 04/20/2023 1:05 PM Note Text: Subjective HPI Nontoxic-appearing female presents urgent care chief complaint flulike symptoms. Duration of symptoms today. Associated symptoms sore throat headache cough runny nose sneezing. Sore throat is a new symptom and is most prominent symptom today. Sick contacts similar signs symptoms. No OTC medications used today. Denies any fever body aches chills productive cough chest pain shortness of breath pleuritic pain hemoptysis nausea vomiting abdominal pain change in bowel or bladder habits. Past medical history prescription medication use and allergies reviewed. Denies chance of . Is not breast-feeding. .Patient presents with: Sore Throat: COTTON, cough, runny nose, sneezing x this AM PAST MEDICAL HISTORY Diagnosis Date ALMA DELIA (generalized anxiety disorder) 2015 Kidney infection 1992 PAST SURGICAL HISTORY Procedure Laterality Date INSERTION OF IUD 06/2014 SKIN BIOPSY HX N/A 1995 Head ALLERGIES Patient has no known allergies. MEDICATIONS ondansetron orally disintegrating (ZOFRAN ODT) 4 mg disintegrating tablet Take 1 tablet by mouth every 8 hours as needed for nausea/vomiting. (Patient not taking: Reported on 10/12/2022) FAMILY HISTORY Problem Relation Age of Onset Lipids Mother GI Mother gut bacteria Cancer Mother skin Cancer Father skin other (anxiety) Sister Alzheimer's Disease Maternal Grandmother Diabetes Maternal Grandfather other (parkinsons) Maternal Grandfather Breast Cancer Paternal Grandmother in her 50s Cancer Paternal Grandfather leukemia Social History Tobacco Use Smoking status: Never Smokeless tobacco: Never Substance Use Topics Alcohol use: Yes Alcohol/week: 2.0 standard drinks of alcohol Types: 2 Glasses of Wine (5oz) per week Drug use: No BP 109/71 Pulse 68 Temp 36.6 ?C (97.9 ?F) Resp 18 Wt 61.3 kg (135 lb 3.2 oz) LMP (LMP Unknown) SpO2 100% BMI 20.26 kg/m? Review of Systems Constitutional: Negative for chills, fever and malaise/fatigue. HENT: Positive for congestion and sore throat. Negative for ear discharge, ear pain and sinus pain. Eyes: Negative for blurred vision, pain, discharge and redness. Respiratory: Positive for cough. Negative for hemoptysis, sputum production, shortness of breath, wheezing and stridor. Cardiovascular: Negative for chest pain. Gastrointestinal: Negative for abdominal pain, diarrhea, nausea and vomiting. Musculoskeletal: Negative for myalgias. Skin: Negative for itching and rash. Neurological: Positive for headaches. Negative for dizziness. Objective Physical Exam Constitutional: General: She is not in acute distress. Appearance: She is not diaphoretic. HENT: Head: Normocephalic. Jaw: No trismus, tenderness, swelling or pain on movement. Nose: Congestion present. Mouth/Throat: Mouth: Mucous membranes are moist. Pharynx: Oropharynx is clear. Uvula midline. Posterior oropharyngeal erythema present. No pharyngeal swelling, oropharyngeal exudate or uvula swelling. Eyes: Conjunctiva/sclera: Conjunctivae normal. Pupils: Pupils are equal, round, and reactive to light. Cardiovascular: Rate and Rhythm: Normal rate and regular rhythm. Heart sounds: Normal heart sounds. Pulmonary: Effort: Pulmonary effort is normal. No tachypnea, accessory muscle usage or respiratory distress. Breath sounds: Normal breath sounds. No stridor. No wheezing, rhonchi or rales. Abdominal: General: There is no distension. Palpations: Abdomen is soft. Tenderness: There is no abdominal tenderness. There is no guarding or rebound. Musculoskeletal: Cervical back: Normal range of motion and neck supple. No edema, erythema, rigidity or tenderness. No pain with movement. Normal range of motion. Lymphadenopathy: Cervical: No cervical adenopathy. Skin: General: Skin is warm and dry. Neurological: Mental Status: She is alert and oriented to person, place, and time. ASSESSMENT/PLAN: 1. Sore throat - ICD9: 462, ICD10: J02.9 (primary diagnosis) - STREP A MOLECULAR (POC) 2. Strep pharyngitis - ICD9: 034.0, ICD10: J02.0 Diagnosis strep pharyngitis. Placed on amoxicillin. Additionally suspicious of viral illness accompanied with strep pharyngitis. We discussed supportive therapies. Patient will follow up with primary care provider as needed. Patient was instructed to immediately proceed to emergency room for any new, worsening, or symptoms lasting longer than anticipated. The patient's clinical presentation is otherwise unremarkable at this time. Based on exam and clinical finding, the patient is stable for discharge. Plan of care was discussed with patient. Patient verbalizes understanding and agrees to plan of care. This note was generated using [employer] software. It may contain er (more content not included)... [facility] 04-20-2023 History of Presen t illness Narrative Subjective HPI Nontoxic-appearing female presents urgent care chief complaint flulike symptoms. Duration of symptoms today. Associated symptoms sore throat headache cough runny nose sneezing. Sore throat is a new symptom and is most prominent symptom today. Sick contacts similar signs symptoms. No OTC medications used today. Denies any fever body aches chills productive cough chest pain shortness of breath pleuritic pain hemoptysis nausea vomiting abdominal pain change in bowel or bladder habits. Past medical history prescription medication use and allergies reviewed. Denies chance of . Is not breast-feeding. .Patient presents with: Sore Throat: COTTON, cough, runny nose, sneezing x this AM PAST MEDICAL HISTORY Diagnosis Date ALMA DELIA (generalized anxiety disorder) 2015 Kidney infection 1992 PAST SURGICAL HISTORY Procedure Laterality Date INSERTION OF IUD 06/2014 SKIN BIOPSY HX N/A 1995 Head ALLERGIES Patient has no known allergies. MEDICATIONS ondansetron orally disintegrating (ZOFRAN ODT) 4 mg disintegrating tablet Take 1 tablet by mouth every 8 hours as needed for nausea/vomiting. (Patient not taking: Reported on 10/12/2022) FAMILY HISTORY Problem Relation Age of Onset Lipids Mother GI Mother gut bacteria Cancer Mother skin Cancer Father skin other (anxiety) Sister Alzheimer's Disease Maternal Grandmother Diabetes Maternal Grandfather other (parkinsons) Maternal Grandfather Breast Cancer Paternal Grandmother in her 50s Cancer Paternal Grandfather leukemia Social History Tobacco Use Smoking status: Never Smokeless tobacco: Never Substance Use Topics Alcohol use: Yes Alcohol/week: 2.0 standard drinks of alcohol Types: 2 Glasses of Wine (5oz) per week Drug use: No BP 109/71 Pulse 68 Temp 36.6 C (97.9 F) Resp 18 Wt 61.3 kg (135 lb 3.2 oz) LMP (LMP Unknown) SpO2 100% BMI 20.26 kg/m Review of Systems Constitutional: Negative for chills, fever and malaise/fatigue. HENT: Positive for congestion and sore throat. Negative for ear discharge, ear pain and sinus pain. Eyes: Negative for blurred vision, pain, discharge and redness. Respiratory: Positive for cough. Negative for hemoptysis, sputum production, shortness of breath, wheezing and stridor. Cardiovascular: Negative for chest pain. Gastrointestinal: Negative for abdominal pain, diarrhea, nausea and vomiting. Musculoskeletal: Negative for myalgias. Skin: Negative for itching and rash. Neurological: Positive for headaches. Negative for dizziness. Objective Physical Exam Constitutional: General: She is not in acute distress. Appearance: She is not diaphoretic. HENT: Head: Normocephalic. Jaw: No trismus, tenderness, swelling or pain on movement. Nose: Congestion present. Mouth/Throat: Mouth: Mucous membranes are moist. Pharynx: Oropharynx is clear. Uvula midline. Posterior oropharyngeal erythema present. No pharyngeal swelling, oropharyngeal exudate or uvula swelling. Eyes: Conjunctiva/sclera: Conjunctivae normal. Pupils: Pupils are equal, round, and reactive to light. Cardiovascular: Rate and Rhythm: Normal rate and regular rhythm. Heart sounds: Normal heart sounds. Pulmonary: Effort: Pulmonary effort is normal. No tachypnea, accessory muscle usage or respiratory distress. Breath sounds: Normal breath sounds. No stridor. No wheezing, rhonchi or rales. Abdominal: General: There is no distension. Palpations: Abdomen is soft. Tenderness: There is no abdominal tenderness. There is no guarding or rebound. Musculoskeletal: Cervical back: Normal range of motion and neck supple. No edema, erythema, rigidity or tenderness. No pain with movement. Normal range of motion. Lymphadenopathy: Cervical: No cervical adenopathy. Skin: General: Skin is warm and dry. Neurological: Mental Status: She is alert and oriented to person, place, and time. ASSESSMENT/PLAN: 1. Sore throat - ICD9: 462, ICD10: J02.9 (primary diagnosis) - STREP A MOLECULAR (POC) 2. Strep pharyngitis - ICD9: 034.0, ICD10: J02.0 Diagnosis strep pharyngitis. Placed on amoxicillin. Additionally suspicious of viral illness accompanied with strep pharyngitis. We discussed supportive therapies. Patient will follow up with primary care provider as needed. Patient was instructed to immediately proceed to emergency room for any new, worsening, or symptoms lasting longer than anticipated. The patient's clinical presentation is otherwise unremarkable at this time. Based on exam and clinical finding, the patient is stable for discharge. Plan of care was discussed with patient. Patient verbalizes understanding and agrees to plan of care. This note was generated using [employer] software. It may contain errors in wording, punctuation, or spelling. Edy Valdez APRN.SHARATH documented in this encounter [facility] 01-30-2023 Note HNO ID: [id number] Author: Basilia Foss PA-C Service: ? Author Type: Physician Indoor Landscape Architect Type: Progress Notes Filed: 01/30/2023 9:03 AM Note Text: This note was created using [employer]. Subjective Jana Morales is a 37 year old female. HPI Presents with cough, congestion body aches over the past 2 days. She did try some Mucinex yesterday which seemed to help some. Her mom tested positive for COVID, she thinks they had given COVID to her mom. No vomiting or diarrhea. She has had low-grade fevers in the 99's. She is vaccinated for COVID. Denies chest pain or shortness of breath. No history of asthma. Denies chronic medical problems. Her two twin 13 month olds are sick as well. Review of Systems Constitutional: Positive for chills, fatigue and fever. HENT: Positive for congestion, rhinorrhea and sore throat. Negative for ear pain. Respiratory: Positive for cough. Negative for shortness of breath and wheezing. Cardiovascular: Negative. Gastrointestinal: Negative. Genitourinary: Negative. Musculoskeletal: Negative. All other systems reviewed and are negative. PAST MEDICAL HISTORY Diagnosis Date ALMA DELIA (generalized anxiety disorder) 2015 Kidney infection 1992 Current Outpatient Medications Medication Sig Dispense Refill ondansetron orally disintegrating (ZOFRAN ODT) 4 mg disintegrating tablet Take 1 tablet by mouth every 8 hours as needed for nausea/vomiting. (Patient not taking: Reported on 10/12/2022) 9 tablet 0 No current facility-administered medications for this visit. PAST SURGICAL HISTORY Procedure Laterality Date INSERTION OF IUD 06/2014 SKIN BIOPSY HX N/A 1995 Head FAMILY HISTORY Problem Relation Age of Onset Lipids Mother GI Mother gut bacteria Cancer Mother skin Cancer Father skin other (anxiety) Sister Alzheimer's Disease Maternal Grandmother Diabetes Maternal Grandfather other (parkinsons) Maternal Grandfather Breast Cancer Paternal Grandmother in her 50s Cancer Paternal Grandfather leukemia Social History Tobacco Use Smoking status: Never Smokeless tobacco: Never Substance Use Topics Alcohol use: Yes Alcohol/week: 5.0 standard drinks of alcohol Types: 2 Glasses of Wine (5oz) per week Drug use: No Objective BP 102/64 Pulse 110 Temp 37.3 ?C (99.1 ?F) Resp 18 Wt 58.2 kg (128 lb 3.2 oz) LMP (LMP Unknown) SpO2 98% BMI 19.21 kg/m? Physical Exam Vitals reviewed. Constitutional: Appearance: Normal appearance. HENT: Head: Normocephalic and atraumatic. Right Ear: Tympanic membrane, ear canal and external ear normal. Left Ear: Tympanic membrane, ear canal and external ear normal. Nose: Congestion present. Mouth/Throat: Mouth: Mucous membranes are moist. Pharynx: Oropharynx is clear. Cardiovascular: Rate and Rhythm: Normal rate and regular rhythm. Heart sounds: Normal heart sounds. Pulmonary: Effort: Pulmonary effort is normal. Breath sounds: Normal breath sounds. Musculoskeletal: Cervical back: Neck supple. Skin: General: Skin is warm and dry. Neurological: General: No focal deficit present. Mental Status: She is alert. Assessment and Plan ASSESSMENT/PLAN: 1. Suspected COVID-19 virus infection - ICD9: V01.79, ICD10: Z20.822 Exposure to COVID with symptoms. She is not a candidate for oral antivirals. Discussed supportive care. Discussed red flags to be seen again. Patient agreeable. - COVID AND INFLUENZA A/B NAAT, ROUTINE Basilia Foss PA-C [facility] 01-30-2023 History of Presen t illness Narrative This note was created using NoteWriter. Subjective Jana A Deja is a 37 year old female. HPI Presents with cough, congestion body aches over the past 2 days. She did try some Mucinex yesterday which seemed to help some. Her mom tested positive for COVID, she thinks they had given COVID to her mom. No vomiting or diarrhea. She has had low-grade fevers in the 's. She is vaccinated for COVID. Denies chest pain or shortness of breath. No history of asthma. Denies chronic medical problems. Her two twin 13 month olds are sick as well. Review of Systems Constitutional: Positive for chills, fatigue and fever. HENT: Positive for congestion, rhinorrhea and sore throat. Negative for ear pain. Respiratory: Positive for cough. Negative for shortness of breath and wheezing. Cardiovascular: Negative. Gastrointestinal: Negative. Genitourinary: Negative. Musculoskeletal: Negative. All other systems reviewed and are negative. PAST MEDICAL HISTORY Diagnosis Date ALMA DELIA (generalized anxiety disorder) 2015 Kidney infection 1992 Current Outpatient Medications Medication Sig Dispense Refill ondansetron orally disintegrating (ZOFRAN ODT) 4 mg disintegrating tablet Take 1 tablet by mouth every 8 hours as needed for nausea/vomiting. (Patient not taking: Reported on 10/12/2022) 9 tablet 0 No current facility-administered medications for this visit. PAST SURGICAL HISTORY Procedure Laterality Date INSERTION OF IUD 06/2014 SKIN BIOPSY HX N/A 1996 Head FAMILY HISTORY Problem Relation Age of Onset Lipids Mother GI Mother gut bacteria Cancer Mother skin Cancer Father skin other (anxiety) Sister Alzheimer's Disease Maternal Grandmother Diabetes Maternal Grandfather other (parkinsons) Maternal Grandfather Breast Cancer Paternal Grandmother in her 50s Cancer Paternal Grandfather leukemia Social History Tobacco Use Smoking status: Never Smokeless tobacco: Never Substance Use Topics Alcohol use: Yes Alcohol/week: 5.0 standard drinks of alcohol Types: 2 Glasses of Wine (5oz) per week Drug use: No Objective BP 102/64 Pulse 110 Temp 37.3 C (99.1 F) Resp 18 Wt 58.2 kg (128 lb 3.2 oz) LMP (LMP Unknown) SpO2 98% BMI 19.21 kg/m Physical Exam Vitals reviewed. Constitutional: Appearance: Normal appearance. HENT: Head: Normocephalic and atraumatic. Right Ear: Tympanic membrane, ear canal and external ear normal. Left Ear: Tympanic membrane, ear canal and external ear normal. Nose: Congestion present. Mouth/Throat: Mouth: Mucous membranes are moist. Pharynx: Oropharynx is clear. Cardiovascular: Rate and Rhythm: Normal rate and regular rhythm. Heart sounds: Normal heart sounds. Pulmonary: Effort: Pulmonary effort is normal. Breath sounds: Normal breath sounds. Musculoskeletal: Cervical back: Neck supple. Skin: General: Skin is warm and dry. Neurological: General: No focal deficit present. Mental Status: She is alert. Assessment and Plan ASSESSMENT/PLAN: 1. Suspected COVID-19 virus infection - ICD9: V01.79, ICD10: Z20.822 Exposure to COVID with symptoms. She is not a candidate for oral antivirals. Discussed supportive care. Discussed red flags to be seen again. Patient agreeable. - COVID & INFLUENZA A/B NAAT, ROUTINE Basilia Foss PA-C documented in this encounter [facility] 11-15-2022 Note HNO ID: [id number] Author: Basilia Foss PA-C Service: ? Author Type: Physician Indoor Landscape Architect Type: Progress Notes Filed: 11/15/2022 3:07 PM Note Text: This note was created using [employer]. Subjective Jana Morales is a 37 year old female. HPI Presents with a chief complaint of sore throat, nasal congestion, headache, sinus pressure for 3 days. She has had a cough. No vomiting or diarrhea. She has not had a fever. No chest pain or shortness of breath. Her twin babies have been sick recently. She wanted to make sure she did not have strep throat as she has had a couple times this year. Review of Systems Constitutional: Negative. HENT: Positive for congestion, sinus pressure and sore throat. Negative for ear pain. Respiratory: Positive for cough. Negative for shortness of breath. Cardiovascular: Negative. Gastrointestinal: Negative. Genitourinary: Negative. Musculoskeletal: Negative. All other systems reviewed and are negative. PAST MEDICAL HISTORY Diagnosis Date ALMA DELIA (generalized anxiety disorder) 2016 Kidney infection 1992 Current Outpatient Medications Medication Sig Dispense Refill ondansetron orally disintegrating (ZOFRAN ODT) 4 mg disintegrating tablet Take 1 tablet by mouth every 8 hours as needed for nausea/vomiting. (Patient not taking: Reported on 10/12/2022) 9 tablet 0 No current facility-administered medications for this visit. PAST SURGICAL HISTORY Procedure Laterality Date INSERTION OF IUD 06/2014 SKIN BIOPSY HX N/A 1995 Head FAMILY HISTORY Problem Relation Age of Onset Lipids Mother GI Mother gut bacteria Cancer Mother skin Cancer Father skin other (anxiety) Sister Alzheimer's Disease Maternal Grandmother Diabetes Maternal Grandfather other (parkinsons) Maternal Grandfather Breast Cancer Paternal Grandmother in her 50s Cancer Paternal Grandfather leukemia Social History Tobacco Use Smoking status: Never Smokeless tobacco: Never Substance Use Topics Alcohol use: Yes Alcohol/week: 5.0 standard drinks Types: 2 Glasses of Wine (5oz) per week Drug use: No Objective BP 120/72 Pulse 72 Temp 36.9 ?C (98.4 ?F) Resp 16 Wt 59.9 kg (132 lb) LMP 11/29/2020 SpO2 98% BMI 19.78 kg/m? Physical Exam Vitals reviewed. Constitutional: Appearance: Normal appearance. HENT: Head: Normocephalic and atraumatic. Right Ear: Tympanic membrane, ear canal and external ear normal. Left Ear: Tympanic membrane, ear canal and external ear normal. Nose: Congestion present. Mouth/Throat: Mouth: Mucous membranes are moist. Pharynx: Oropharynx is clear. Cardiovascular: Rate and Rhythm: Normal rate and regular rhythm. Heart sounds: Normal heart sounds. Pulmonary: Effort: Pulmonary effort is normal. Breath sounds: Normal breath sounds. Musculoskeletal: Cervical back: Neck supple. Skin: General: Skin is warm and dry. Neurological: Mental Status: She is alert. Assessment and Plan ASSESSMENT/PLAN: 1. Viral URI - ICD9: 465.9, ICD10: J06.9 - Discussed viral etiology and rationale for treatment. - Alere Strep Test neg, no culture pending - Symptomatic treatment with prn analgesia - Supportive care with fluids and rest - Follow up in one week if symptoms persist or sooner if worsening of symptoms - STREP A MOLECULAR (POC) Basilai Foss PA-C [facility] 11-15-2022 History of Presen t illness Narrative This note was created using NoteWriter. Subjective Jana Morales is a 37 year old female. HPI Presents with a chief complaint of sore throat, nasal congestion, headache, sinus pressure for 3 days. She has had a cough. No vomiting or diarrhea. She has not had a fever. No chest pain or shortness of breath. Her twin babies have been sick recently. She wanted to make sure she did not have strep throat as she has had a couple times this year. Review of Systems Constitutional: Negative. HENT: Positive for congestion, sinus pressure and sore throat. Negative for ear pain. Respiratory: Positive for cough. Negative for shortness of breath. Cardiovascular: Negative. Gastrointestinal: Negative. Genitourinary: Negative. Musculoskeletal: Negative. All other systems reviewed and are negative. PAST MEDICAL HISTORY Diagnosis Date ALMA DELIA (generalized anxiety disorder) 2015 Kidney infection 1992 Current Outpatient Medications Medication Sig Dispense Refill ondansetron orally disintegrating (ZOFRAN ODT) 4 mg disintegrating tablet Take 1 tablet by mouth every 8 hours as needed for nausea/vomiting. (Patient not taking: Reported on 10/12/2022) 9 tablet 0 No current facility-administered medications for this visit. PAST SURGICAL HISTORY Procedure Laterality Date INSERTION OF IUD 06/2014 SKIN BIOPSY HX N/A 1996 Head FAMILY HISTORY Problem Relation Age of Onset Lipids Mother GI Mother gut bacteria Cancer Mother skin Cancer Father skin other (anxiety) Sister Alzheimer's Disease Maternal Grandmother Diabetes Maternal Grandfather other (parkinsons) Maternal Grandfather Breast Cancer Paternal Grandmother in her 50s Cancer Paternal Grandfather leukemia Social History Tobacco Use Smoking status: Never Smokeless tobacco: Never Substance Use Topics Alcohol use: Yes Alcohol/week: 5.0 standard drinks Types: 2 Glasses of Wine (5oz) per week Drug use: No Objective BP 120/72 Pulse 72 Temp 36.9 C (98.4 F) Resp 16 Wt 59.9 kg (132 lb) LMP 11/29/2020 SpO2 98% BMI 19.78 kg/m Physical Exam Vitals reviewed. Constitutional: Appearance: Normal appearance. HENT: Head: Normocephalic and atraumatic. Right Ear: Tympanic membrane, ear canal and external ear normal. Left Ear: Tympanic membrane, ear canal and external ear normal. Nose: Congestion present. Mouth/Throat: Mouth: Mucous membranes are moist. Pharynx: Oropharynx is clear. Cardiovascular: Rate and Rhythm: Normal rate and regular rhythm. Heart sounds: Normal heart sounds. Pulmonary: Effort: Pulmonary effort is normal. Breath sounds: Normal breath sounds. Musculoskeletal: Cervical back: Neck supple. Skin: General: Skin is warm and dry. Neurological: Mental Status: She is alert. Assessment and Plan ASSESSMENT/PLAN: 1. Viral URI - ICD9: 465.9, ICD10: J06.9 - Discussed viral etiology and rationale for treatment. - Alere Strep Test neg, no culture pending - Symptomatic treatment with prn analgesia - Supportive care with fluids and rest - Follow up in one week if symptoms persist or sooner if worsening of symptoms - STREP A MOLECULAR (POC) Basilia Foss PA-C documented in this encounter [facility] 11-15-2022 Instructions Basilia Foss PA-C - 11/15/2022 1:54 PM EDT Treatment for Viral Upper Respiratory Tract Infections Your body will kill off the virus by itself. Additionally, you can prime your body's immune system. This may help you get better more quickly. Drink lots of fluids Make sure you are eating well Get plenty of rest - at least 8 hours of sleep per night for adults and more for children We do not have any medications that kill off these viruses. Antibiotics are used to treat bacterial infections; however, they are not active against viral infections. There are some things that might help you feel better, though. Vaporizers, humidifiers, hot showers, and hot fluids help open respiratory and sinus passages Sudafed is a safe and effective decongestant Upson Nasal Harshaw may offer relief of nasal and head congestion Hardik's Vapor Rub placed on a hot towel and draped over the head may relieve congestion Tylenol and Advil help control fevers and headaches Salt water gargles help relieve sore throats Chloraceptic spray or throat lozenges may also help relieve sore throat symptoms Robitussin DM will help loosen up secretions and also provide relief from a cough Occasionally, viral infections turn into something more serious. You should see your doctor or return to the Urgent Care if: You have fevers for longer than five days You have fevers above 102 degrees You are still sick after 10 days You have shortness of breath or wheezing After several days you are getting worse rather than better documented in this encounter [facility] 10-12-2022 Note HNO ID: [id number] Author: Devaughn Merino APRN.INSTRUCTOR TAP DANCING Service: ? Author Type: Nurse Practitioner Type: Progress Notes Filed: 10/12/2022 11:38 AM Note Text: Subjective HPI HPI Jana Morales is a 36 year old female who presents today for CC of st, congestion, cough. This started 1 day ago. Has tried otc medication for relief. Symptoms are worsened by nothing. Risk factors sick exposures at home and work. Denies possibility of being . .Patient presents with: Sore Throat: COTTON x1 day, strep 10/07, just finished atb PAST MEDICAL HISTORY Diagnosis Date ALMA DELIA (generalized anxiety disorder) 2015 Kidney infection 1992 PAST SURGICAL HISTORY Procedure Laterality Date INSERTION OF IUD 06/2014 SKIN BIOPSY HX N/A 1995 Head ALLERGIES Patient has no known allergies. MEDICATIONS ondansetron orally disintegrating (ZOFRAN ODT) 4 mg disintegrating tablet Take 1 tablet by mouth every 8 hours as needed for nausea/vomiting. (Patient not taking: Reported on 10/12/2022) FAMILY HISTORY Problem Relation Age of Onset Lipids Mother GI Mother gut bacteria Cancer Mother skin Cancer Father skin other (anxiety) Sister Alzheimer's Disease Maternal Grandmother Diabetes Maternal Grandfather other (parkinsons) Maternal Grandfather Breast Cancer Paternal Grandmother in her 50s Cancer Paternal Grandfather leukemia Social History Tobacco Use Smoking status: Never Smokeless tobacco: Never Substance Use Topics Alcohol use: Yes Alcohol/week: 5.0 standard drinks Types: 2 Glasses of Wine (5oz) per week Drug use: No Review of Systems Constitutional: Negative for fever. HENT: Positive for congestion and sore throat. Negative for ear pain and nosebleeds. Respiratory: Positive for cough. Negative for shortness of breath and wheezing. Musculoskeletal: Negative for neck pain. Objective Blood pressure 104/68, pulse 82, temperature 36.8 ?C (98.2 ?F), resp. rate 18, weight 60.2 kg (132 lb 12.8 oz), last menstrual period 11/29/2020, SpO2 98 %. Physical Exam Constitutional: General: She is not in acute distress. Appearance: She is not toxic-appearing or diaphoretic. HENT: Head: Normocephalic and atraumatic. Right Ear: Hearing, tympanic membrane, ear canal and external ear normal. Left Ear: Hearing, tympanic membrane, ear canal and external ear normal. Nose: Nose normal. Mouth/Throat: Pharynx: Uvula midline. Posterior oropharyngeal erythema present. No pharyngeal swelling, oropharyngeal exudate or uvula swelling. Eyes: General: Lids are normal. No scleral icterus. Right eye: No discharge. Left eye: No discharge. Conjunctiva/sclera: Conjunctivae normal. Pupils: Pupils are equal, round, and reactive to light. Neck: Trachea: Trachea normal. Cardiovascular: Rate and Rhythm: Normal rate and regular rhythm. Heart sounds: Normal heart sounds. Pulmonary: Effort: Pulmonary effort is normal. Breath sounds: Normal breath sounds. Musculoskeletal: Cervical back: Normal range of motion and neck supple. Lymphadenopathy: Cervical: No cervical adenopathy. Right cervical: No superficial cervical adenopathy. Left cervical: No superficial cervical adenopathy. Skin: Findings: No rash. Neurological: Mental Status: She is alert and oriented to person, place, and time. ASSESSMENT/PLAN: 1. Sore throat - ICD9: 462, ICD10: J02.9 - suspect viral - Alere Strep Test neg, no culture pending - Discussed supportive care treatment with fluids, rest and analgesia. - Contagious dz precautions discussed- including considered contagious until on antibiotics for 24 hours - The patient should follow up in 3-5 days if symptoms persist or worsen - STREP A MOLECULAR (POC) Devaughn Merino APRN.[facility] 09-27-2022 Note HNO ID: [id number] Author: IVY Lopez Service: ? Author Type: Physician Indoor Landscape Architect Type: Progress Notes Filed: 09/27/2022 11:56 AM Note Text: This note was created using [employer]. Subjective Jana Morales is a 36 year old female. HPI 36-year-old female presents for sore throat and headache. Patient states she has had a sore throat since yesterday. She denies any fevers. No cough or other URI symptoms. She had strep about a month ago. She did finish all of the antibiotic. 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 She states strep is going been going through her home as well. She has no vomiting or diarrhea. No other complaints. She is breast-feeding. PAST MEDICAL HISTORY Diagnosis Date ALMA DELIA (generalized anxiety disorder) 2015 Kidney infection 1992 PAST SURGICAL HISTORY Procedure Laterality Date INSERTION OF IUD 06/2014 SKIN BIOPSY HX N/A 1995 Head ALLERGIES Patient has no known allergies. MEDICATIONS No prescriptions on file. FAMILY HISTORY Problem Relation Age of Onset Lipids Mother GI Mother gut bacteria Cancer Mother skin Cancer Father skin other (anxiety) Sister Alzheimer's Disease Maternal Grandmother Diabetes Maternal Grandfather other (parkinsons) Maternal Grandfather Breast Cancer Paternal Grandmother in her 50s Cancer Paternal Grandfather leukemia Social History Tobacco Use Smoking status: Never Smokeless tobacco: Never Substance Use Topics Alcohol use: Yes Alcohol/week: 5.0 standard drinks Types: 2 Glasses of Wine (5oz) per week Drug use: No Review of Systems Constitutional: Negative for chills and fever. HENT: Positive for sore throat. Negative for congestion and ear pain. Respiratory: Negative for cough and shortness of breath. Cardiovascular: Negative for chest pain. Gastrointestinal: Negative for diarrhea and vomiting. Neurological: Positive for headaches. Objective BP 122/70 Pulse 74 Temp 36.2 ?C (97.1 ?F) Resp 16 Wt 61.2 kg (135 lb) LMP 11/29/2020 SpO2 99% BMI 20.23 kg/m? Physical Exam Vitals and nursing note reviewed. Constitutional: General: She is not in acute distress. Appearance: Normal appearance. She is not toxic-appearing. HENT: Right Ear: Tympanic membrane and ear canal normal. Left Ear: Tympanic membrane and ear canal normal. Nose: Nose normal. Mouth/Throat: Mouth: Mucous membranes are moist. Pharynx: Uvula midline. Posterior oropharyngeal erythema present. No oropharyngeal exudate. Tonsils: No tonsillar exudate. 1+ on the right. 1+ on the left. Eyes: Conjunctiva/sclera: Conjunctivae normal. Cardiovascular: Rate and Rhythm: Normal rate and regular rhythm. Pulmonary: Effort: Pulmonary effort is normal. Breath sounds: Normal breath sounds. Neurological: Mental Status: She is alert. Assessment and Plan ASSESSMENT/PLAN: 1. Strep pharyngitis - ICD9: 034.0, ICD10: J02.0 (primary diagnosis) - suspect strep - Alere Strep Test positive, no culture pending - Amoxicillin for 10 days. -Patient reports a lot of nausea last time while taking the amoxicillin. Rx for Zofran sent. Advised to take this as needed for nausea/vomiting - Discussed supportive care treatment with fluids, rest and analgesia. 2. Sore throat - ICD9: 462, ICD10: J02.9 - STREP A MOLECULAR (POC) Diagnosis and treatment plan were discussed and questions were answered to the patient's satisfaction. Pt acknowledged understanding of concepts and follow up plan. Specific signs and symptoms that would indicate the need for higher level of care were discussed in detail warranting prompt ER evaluation. IVY Lopez [facility] 09-27-2022 History of Presen t illness Narrative This note was created using [employer]. Subjective Jana Morales is a 36 year old female. HPI 36-year-old female presents for sore throat and headache. Patient states she has had a sore throat since yesterday. She denies any fevers. No cough or other URI symptoms. She had strep about a month ago. She did finish all of the antibiotic. 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 She states strep is going been going through her home as well. She has no vomiting or diarrhea. No other complaints. She is breast-feeding. PAST MEDICAL HISTORY Diagnosis Date ALMA DELIA (generalized anxiety disorder) 2015 Kidney infection 1992 PAST SURGICAL HISTORY Procedure Laterality Date INSERTION OF IUD 06/2014 SKIN BIOPSY HX N/A 1995 Head ALLERGIES Patient has no known allergies. MEDICATIONS No prescriptions on file. FAMILY HISTORY Problem Relation Age of Onset Lipids Mother GI Mother gut bacteria Cancer Mother skin Cancer Father skin other (anxiety) Sister Alzheimer's Disease Maternal Grandmother Diabetes Maternal Grandfather other (parkinsons) Maternal Grandfather Breast Cancer Paternal Grandmother in her 50s Cancer Paternal Grandfather leukemia Social History Tobacco Use Smoking status: Never Smokeless tobacco: Never Substance Use Topics Alcohol use: Yes Alcohol/week: 5.0 standard drinks Types: 2 Glasses of Wine (5oz) per week Drug use: No Review of Systems Constitutional: Negative for chills and fever. HENT: Positive for sore throat. Negative for congestion and ear pain. Respiratory: Negative for cough and shortness of breath. Cardiovascular: Negative for chest pain. Gastrointestinal: Negative for diarrhea and vomiting. Neurological: Positive for headaches. Objective BP 122/70 Pulse 74 Temp 36.2 C (97.1 F) Resp 16 Wt 61.2 kg (135 lb) LMP 11/29/2020 SpO2 99% BMI 20.23 kg/m Physical Exam Vitals and nursing note reviewed. Constitutional: General: She is not in acute distress. Appearance: Normal appearance. She is not toxic-appearing. HENT: Right Ear: Tympanic membrane and ear canal normal. Left Ear: Tympanic membrane and ear canal normal. Nose: Nose normal. Mouth/Throat: Mouth: Mucous membranes are moist. Pharynx: Uvula midline. Posterior oropharyngeal erythema present. No oropharyngeal exudate. Tonsils: No tonsillar exudate. 1+ on the right. 1+ on the left. Eyes: Conjunctiva/sclera: Conjunctivae normal. Cardiovascular: Rate and Rhythm: Normal rate and regular rhythm. Pulmonary: Effort: Pulmonary effort is normal. Breath sounds: Normal breath sounds. Neurological: Mental Status: She is alert. Assessment and Plan ASSESSMENT/PLAN: 1. Strep pharyngitis - ICD9: 034.0, ICD10: J02.0 (primary diagnosis) - suspect strep - Alere Strep Test positive, no culture pending - Amoxicillin for 10 days. -Patient reports a lot of nausea last time while taking the amoxicillin. Rx for Zofran sent. Advised to take this as needed for nausea/vomiting - Discussed supportive care treatment with fluids, rest and analgesia. 2. Sore throat - ICD9: 462, ICD10: J02.9 - STREP A MOLECULAR (POC) Diagnosis and treatment plan were discussed and questions were answered to the patient's satisfaction. Pt acknowledged understanding of concepts and follow up plan. Specific signs and symptoms that would indicate the need for higher level of care were discussed in detail warranting prompt ER evaluation. IVY Lopez documented in this encounter [facility] 09-19-2022 Note HNO ID: [id number] Author: Bebe López MD Service: ? Author Type: Physician Type: Progress Notes Filed: 09/19/2022 3:17 PM Note Text: Chief Complaint Patient presents with: URI: Symptoms x 4-5 days HPI Jana Morales is a 36 year old female who presents here today for Above Complaints.. Patient complaining of upset stomach, nausea with vomiting x1, productive cough, chest congestion, headache, sinus pressure, nasal congestion, rhinorrhea, sore throat, myalgias, fatigue, diarrhea which started 5 days ago. Treating OTC with Robitussin and Cepacol cough drops. Denies fever/chills, SOB, wheezing, chest pain, new loss of taste/smell. Feels like symptoms are worsening gradually. Recent sick contacts with kids at home. Has not tested for COVID. No known exposure. Noted she is breast feeding currently. Avoiding decongestants. Past medical history, appointments, medications, allergies reviewed. Previous Medical History PAST MEDICAL HISTORY Diagnosis Date ALMA DELIA (generalized anxiety disorder) 2015 Kidney infection 1992 Previous Surgical History PAST SURGICAL HISTORY Procedure Laterality Date INSERTION OF IUD 06/2014 SKIN BIOPSY HX N/A 1995 Head Family History FAMILY HISTORY Problem Relation Age of Onset Lipids Mother GI Mother gut bacteria Cancer Mother skin Cancer Father skin other (anxiety) Sister Alzheimer's Disease Maternal Grandmother Diabetes Maternal Grandfather other (parkinsons) Maternal Grandfather Breast Cancer Paternal Grandmother in her 50s Cancer Paternal Grandfather leukemia Patient Allergies ALLERGIES No Known Allergies Current Medications No current outpatient medications on file prior to visit. No current facility-administered medications on file prior to visit. Social History Social History Tobacco Use Smoking status: Never Smokeless tobacco: Never Substance Use Topics Alcohol use: Yes Alcohol/week: 5.0 standard drinks Types: 2 Glasses of Wine (5oz) per week Drug use: No Review of Symptoms REVIEW OF SYSTEMS See HPI EXAM: BP 110/68 Pulse 83 Temp 36.5 ?C (97.7 ?F) Resp 16 LMP 11/29/2020 SpO2 97% General Appearance: Ill appearing, non toxic. Skin: Skin color, texture, turgor normal, no suspicious rashes or lesions. Head: Normocephalic, no masses, lesions, tenderness or abnormalities. Eyes: Anicteric sclera. Pupils are equally round and reactive to light. Extraocular movements are intact. . Ears: External ears normal, canals clear. Nose/Sinuses: Nares normal, septum midline, mucosa normal, no drainage or sinus tenderness. Oropharynx: Lips, mucosa, and tongue normal, teeth and gums normal, oropharynx normal. Neck: Supple, no adenopathy; thyroid symmetric, normal size, no bruits. Lungs: Lungs clear to auscultation. No wheezing, rhonchi, rales.. Heart: RRR without murmur, gallop, or rubs. No ectopy. Health Maintenance List HEPATITIS B(1 of 3 - 3-dose series) Never done HPV TESTING Never done COVID-19 VACCINE(5 - Booster) due on 10/03/2021 PAP TESTING due on 12/26/2021 DEPRESSION ASSESSMENT Never done INFLUENZA(Season Ended) due on 01/26/2023 DTAP,TDAP,TD(2 - Td or Tdap) due on 05/01/2027 HEPATITIS C SCREENING Completed HIV SCREENING Completed ASSESSMENT/PLAN: 1. Suspected COVID-19 virus infection - ICD9: V01.79, ICD10: Z20.822 Swabbed for COVID today. Recommend rest, supportive care, and should isolate until: At least 5 days have passed since symptoms first appeared and At least 24 hours have passed since last fever without the use of fever-reducing medications and Symptoms (e.g., cough, shortness of breath) have improved. Should wear mask for at least 5 days after he ends isolation to prevent spread to others. Discussed use of cough drops, tylenol/ibuprofen, cepacol, delsym OTC while . Red flags for re-assessment reviewed with patient in detail. - 2019 CORONAVIRUS Bebe López MD [facility] 09-19-2022 History of Presen t illness Narrative Chief Complaint Patient presents with: URI: Symptoms x 4-5 days HPI Jana Morales is a 36 year old female who presents here today for Above Complaints.. Patient complaining of upset stomach, nausea with vomiting x1, productive cough, chest congestion, headache, sinus pressure, nasal congestion, rhinorrhea, sore throat, myalgias, fatigue, diarrhea which started 5 days ago. Treating OTC with Robitussin and Cepacol cough drops. Denies fever/chills, SOB, wheezing, chest pain, new loss of taste/smell. Feels like symptoms are worsening gradually. Recent sick contacts with kids at home. Has not tested for COVID. No known exposure. Noted she is breast feeding currently. Avoiding decongestants. Past medical history, appointments, medications, allergies reviewed. Previous Medical History PAST MEDICAL HISTORY Diagnosis Date ALMA DELIA (generalized anxiety disorder) 2015 Kidney infection 1992 Previous Surgical History PAST SURGICAL HISTORY Procedure Laterality Date INSERTION OF IUD 06/2014 SKIN BIOPSY HX N/A 1996 Head Family History FAMILY HISTORY Problem Relation Age of Onset Lipids Mother GI Mother gut bacteria Cancer Mother skin Cancer Father skin other (anxiety) Sister Alzheimer's Disease Maternal Grandmother Diabetes Maternal Grandfather other (parkinsons) Maternal Grandfather Breast Cancer Paternal Grandmother in her 50s Cancer Paternal Grandfather leukemia Patient Allergies ALLERGIES No Known Allergies Current Medications No current outpatient medications on file prior to visit. No current facility-administered medications on file prior to visit. Social History Social History Tobacco Use Smoking status: Never Smokeless tobacco: Never Substance Use Topics Alcohol use: Yes Alcohol/week: 5.0 standard drinks Types: 2 Glasses of Wine (5oz) per week Drug use: No Review of Symptoms REVIEW OF SYSTEMS See HPI EXAM: BP 110/68 Pulse 83 Temp 36.5 C (97.7 F) Resp 16 LMP 11/29/2020 SpO2 97% General Appearance: Ill appearing, non toxic. Skin: Skin color, texture, turgor normal, no suspicious rashes or lesions. Head: Normocephalic, no masses, lesions, tenderness or abnormalities. Eyes: Anicteric sclera. Pupils are equally round and reactive to light. Extraocular movements are intact. . Ears: External ears normal, canals clear. Nose/Sinuses: Nares normal, septum midline, mucosa normal, no drainage or sinus tenderness. Oropharynx: Lips, mucosa, and tongue normal, teeth and gums normal, oropharynx normal. Neck: Supple, no adenopathy; thyroid symmetric, normal size, no bruits. Lungs: Lungs clear to auscultation. No wheezing, rhonchi, rales.. Heart: RRR without murmur, gallop, or rubs. No ectopy. Health Maintenance List HEPATITIS B(1 of 3 - 3-dose series) Never done HPV TESTING Never done COVID-19 VACCINE(5 - Booster) due on 10/03/2021 PAP TESTING due on 12/26/2021 DEPRESSION ASSESSMENT Never done INFLUENZA(Season Ended) due on 01/26/2023 DTAP,TDAP,TD(2 - Td or Tdap) due on 05/01/2027 HEPATITIS C SCREENING Completed HIV SCREENING Completed ASSESSMENT/PLAN: 1. Suspected COVID-19 virus infection - ICD9: V01.79, ICD10: Z20.822 Swabbed for COVID today. Recommend rest, supportive care, and should isolate until: At least 5 days have passed since symptoms first appeared and At least 24 hours have passed since last fever without the use of fever-reducing medications and Symptoms (e.g., cough, shortness of breath) have improved. Should wear mask for at least 5 days after he ends isolation to prevent spread to others. Discussed use of cough drops, tylenol/ibuprofen, cepacol, delsym OTC while . Red flags for re-assessment reviewed with patient in detail. - 2019 CORONAVIRUS Bebe López MD documented in this encounter [facility] 08-30-2022 Note HNO ID: [id number] Author: IVY Lopez Service: ? Author Type: Physician Indoor Landscape Architect Type: Progress Notes Filed: 08/30/2022 9:49 AM Note Text: This note was created using [employer]. Subjective Jana Etienne is a 36 year old female. HPI 36-year-old female presents for sore throat. Patient states that she has had a sore throat for the past few days. She also has some headaches and body aches. No fevers. No vomiting or diarrhea. She has had mild cough. 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 PAST MEDICAL HISTORY Diagnosis Date ALMA DELIA (generalized anxiety disorder) 2016 Kidney infection 1992 PAST SURGICAL HISTORY Procedure Laterality Date INSERTION OF IUD 06/2014 SKIN BIOPSY HX N/A 1995 Head ALLERGIES Patient has no known allergies. MEDICATIONS amoxicillin (AMOXIL) 500 mg capsule Take 1 capsule by mouth twice daily for 10 days. FAMILY HISTORY Problem Relation Age of Onset Lipids Mother GI Mother gut bacteria Cancer Mother skin Cancer Father skin other (anxiety) Sister Alzheimer's Disease Maternal Grandmother Diabetes Maternal Grandfather other (parkinsons) Maternal Grandfather Breast Cancer Paternal Grandmother in her 50s Cancer Paternal Grandfather leukemia Social History Tobacco Use Smoking status: Never Smokeless tobacco: Never Substance Use Topics Alcohol use: Yes Alcohol/week: 5.0 standard drinks Types: 2 Glasses of Wine (5oz) per week Drug use: No Review of Systems Constitutional: Positive for chills. Negative for fever. HENT: Positive for sore throat. Negative for congestion and ear pain. Respiratory: Positive for cough. Negative for shortness of breath. Cardiovascular: Negative for chest pain. Gastrointestinal: Negative for diarrhea and vomiting. Musculoskeletal: Positive for myalgias. Objective BP 122/80 Pulse 85 Temp 36.7 ?C (98 ?F) (Tympanic) Resp 16 Wt 61.9 kg (136 lb 6.4 oz) LMP 11/29/2020 SpO2 98% BMI 20.44 kg/m? Physical Exam Vitals and nursing note reviewed. Constitutional: General: She is not in acute distress. Appearance: Normal appearance. She is not toxic-appearing. HENT: Nose: Nose normal. Mouth/Throat: Mouth: Mucous membranes are moist. Pharynx: Posterior oropharyngeal erythema present. No oropharyngeal exudate. Tonsils: No tonsillar exudate. Eyes: Conjunctiva/sclera: Conjunctivae normal. Cardiovascular: Rate and Rhythm: Normal rate and regular rhythm. Pulmonary: Effort: Pulmonary effort is normal. Breath sounds: Normal breath sounds. Neurological: Mental Status: She is alert. Assessment and Plan ASSESSMENT/PLAN: 1. Sore throat - ICD9: 462, ICD10: J02.9 (primary diagnosis) - STREP A MOLECULAR (POC) 2. Strep pharyngitis - ICD9: 034.0, ICD10: J02.0 - suspect strep - Alere Strep Test positive, no culture pending - Amoxicillin for 10 days. Advised patient this is ok to take while - Discussed supportive care treatment with fluids, rest and analgesia. Diagnosis and treatment plan were discussed and questions were answered to the patient's satisfaction. Pt acknowledged understanding of concepts and follow up plan. Specific signs and symptoms that would indicate the need for higher level of care were discussed in detail warranting prompt ER evaluation. IVY Lopez [facility] 08-30-2022 History of Presen t illness Narrative This note was created using [employer]. Subjective Jnaa Etienne is a 36 year old female. HPI 36-year-old female presents for sore throat. Patient states that she has had a sore throat for the past few days. She also has some headaches and body aches. No fevers. No vomiting or diarrhea. She has had mild cough. 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 PAST MEDICAL HISTORY Diagnosis Date ALMA DELIA (generalized anxiety disorder) 2015 Kidney infection 1992 PAST SURGICAL HISTORY Procedure Laterality Date INSERTION OF IUD 06/2014 SKIN BIOPSY HX N/A 1995 Head ALLERGIES Patient has no known allergies. MEDICATIONS amoxicillin (AMOXIL) 500 mg capsule Take 1 capsule by mouth twice daily for 10 days. FAMILY HISTORY Problem Relation Age of Onset Lipids Mother GI Mother gut bacteria Cancer Mother skin Cancer Father skin other (anxiety) Sister Alzheimer's Disease Maternal Grandmother Diabetes Maternal Grandfather other (parkinsons) Maternal Grandfather Breast Cancer Paternal Grandmother in her 50s Cancer Paternal Grandfather leukemia Social History Tobacco Use Smoking status: Never Smokeless tobacco: Never Substance Use Topics Alcohol use: Yes Alcohol/week: 5.0 standard drinks Types: 2 Glasses of Wine (5oz) per week Drug use: No Review of Systems Constitutional: Positive for chills. Negative for fever. HENT: Positive for sore throat. Negative for congestion and ear pain. Respiratory: Positive for cough. Negative for shortness of breath. Cardiovascular: Negative for chest pain. Gastrointestinal: Negative for diarrhea and vomiting. Musculoskeletal: Positive for myalgias. Objective BP 122/80 Pulse 85 Temp 36.7 C (98 F) (Tympanic) Resp 16 Wt 61.9 kg (136 lb 6.4 oz) LMP 11/29/2020 SpO2 98% BMI 20.44 kg/m Physical Exam Vitals and nursing note reviewed. Constitutional: General: She is not in acute distress. Appearance: Normal appearance. She is not toxic-appearing. HENT: Nose: Nose normal. Mouth/Throat: Mouth: Mucous membranes are moist. Pharynx: Posterior oropharyngeal erythema present. No oropharyngeal exudate. Tonsils: No tonsillar exudate. Eyes: Conjunctiva/sclera: Conjunctivae normal. Cardiovascular: Rate and Rhythm: Normal rate and regular rhythm. Pulmonary: Effort: Pulmonary effort is normal. Breath sounds: Normal breath sounds. Neurological: Mental Status: She is alert. Assessment and Plan ASSESSMENT/PLAN: 1. Sore throat - ICD9: 462, ICD10: J02.9 (primary diagnosis) - STREP A MOLECULAR (POC) 2. Strep pharyngitis - ICD9: 034.0, ICD10: J02.0 - suspect strep - Alere Strep Test positive, no culture pending - Amoxicillin for 10 days. Advised patient this is ok to take while - Discussed supportive care treatment with fluids, rest and analgesia. Diagnosis and treatment plan were discussed and questions were answered to the patient's satisfaction. Pt acknowledged understanding of concepts and follow up plan. Specific signs and symptoms that would indicate the need for higher level of care were discussed in detail warranting prompt ER evaluation. IVY Lopez documented in this encounter [facility] Diagnosis Suspected COVID-19 virus infection- Primary [facility] Diagnosis Strep pharyngitis- Primary Streptococcal sore throat Sore throat Acute pharyngitis [facility]* Diagnosis Viral URI- Primary Acute upper respiratory infections of unspecified site [facility] Diagnosis Suspected COVID-19 virus infection- Primary documented in this encounter [facility] note* Diagnosis Sore throat- Primary Acute pharyngitis Strep pharyngitis Streptococcal sore throat documented in this encounter [facility] note* Diagnosis Sore throat- Primary Acute pharyngitis Strep pharyngitis Streptococcal sore throat documented in this encounter [facility] Summary Purpose Family History No Family History Records FoundNo Family History Records Found Advance Directives No Advanced Directives Records FoundNo Advanced Directives Records Found Additional Source Comments Source Comments (unrecognize d section and content) In the event this informatio n is protected by the Federal Confidentiality of Alcohol and Drug Abuse Patient Records regulations: The Federal rules restrict any use of the information to criminally investigate or prosecute any alcohol or drug abuse patient.[facility] the event this information is protected by the Federal Confidentiality of Alcohol and Drug Abuse Patient Records regulations: The Federal rules restrict any use of the information to criminally investigate or prosecute any alcohol or drug abuse patient.[facility] the event this information is protected by the Federal Confidentiality of Alcohol and Drug Abuse Patient Records regulations: The Federal rules restrict any use of the information to criminally investigate or prosecute any alcohol or drug abuse patient.[facility] the event this information is protected by the Federal Confidentiality of Alcohol and Drug Abuse Patient Records regulations: The Federal rules restrict any use of the information to criminally investigate or prosecute any alcohol or drug abuse patient.[facility] the event this information is protected by the Federal Confidentiality of Alcohol and Drug Abuse Patient Records regulations: The Federal rules restrict any use of the information to criminally investigate or prosecute any alcohol or drug abuse patient.[facility] the event this information is protected by the [facility] Confidentiality of Alcohol and Drug Abuse Patient Records regulations: The Federal rules restrict any use of the information to criminally investigate or prosecute any alcohol or drug abuse patient.[facility] the event this information is protected by the Federal Confidentiality of Alcohol and Drug Abuse Patient Records regulations: The Federal rules restrict any use of the information to criminally investigate or prosecute any alcohol or drug abuse patient.[facility] Reason for Visit (unrecogniz ed section and content) Reason Comments URI Symptoms x 4-5 days Reason Comments Sore Throat headache x 1 day Reason Comments Sore Throat With headache x 3 da ys Reason Comments Cough Congestion body ache s x 2 days Reason Comments Sore Throat COTTON, cough, runny nos e, sneezing x this AM Reason Comments Sore Throat X2 days Care Teams (unrecognized sec tion and content) Copper Plate Printer Relationship Specialty Start Date End Date Bebe López MD [address] [place] [address] PCP - General Family Medicine 03/01/17 Copper Plate Printer Relationship Specialty Start Date End Date Bebe López MD [address] [place] [address] PCP - General Family Medicine 03/01/17 Copper Plate Printer Relationship Specialty Start Date End Date Bebe López MD [address] [place] [place] [place] [id number] PCP - General Family Medicine 03/01/17 Copper Plate Printer Relationship Specialty Start Date End Date Bebe López MD [address] [facility], [place] [id number] PCP - General Family Medicine 03/01/17 INFORMATION SOURCE (unrecogn ized section and content) DATE CREATED AUTHOR AUTHOR'S YULISSA ATERNESTO 06/18/2023 [facility] FOR RECORDS PERTAINING TO PATIENTS WHO ARE OR HAVE BEEN ENROLLED IN A CHEMICAL DEPENDENCY/SUBSTANCEABUSE PROGRAM, SOME INFORMATION MAY BE OMITTED. This clinical summary was aggregated from multiple sources. Caution should be exercised in using it in the provision of clinical care. This summary normalizes information from multiple sources, and as a consequence, information in this document may materially change the coding, format and clinical context of patient data. In addition, data may be omitted in some cases. CLINICAL DECISIONS SHOULD BE BASED ON THE PRIMARY CLINICAL RECORDS. [facility] [employer] [facility]. provides no warranty or guarantee of the accuracy or completeness of information in this document.
== END | disposition home or self-care (01) ==
LOC: US 15:45
PROVIDERS: PCP Family Medicine; Referring Provider Obstetrics & Gynecology; Visit Provider Obstetrics & Gynecology
DX: R10.2 Pelvic and perineal pain (principal)
CPT/HCPCS: 76830; 76856

== ENCOUNTER → 2023-07-02 | Outpatient (CLI) | payer BC, SELFPAY ==
[2023-07-02 09:24] LABS: Absolute Lymphocyte Count 1.95 X10^3/uL (0.83-4.51); Absolute Neutrophil Count 2.3 X10^3/uL (2.0-7.7); Basophil# 0.05 X10^3/uL; Eosinophil# 0.34 X10^3/uL; Eosinophils% 6.8 % (0-5); Hematocrit 42.2 % (37-47); Hemoglobin 13.7 g/dL (12.0-15.0); Lymphocyte # 1.95 X10^3/ul (0.83-4.51); Lymphocyte % 39.1 % (19-41); Mean Corp Hgb Conc 32.5 g/dL (32-36); Mean Corpuscular Hgb 30.4 pg (27.0-32.0); Mean Corpuscular Volume 93.6 fL (81-99); Monocyte# 0.34 X10^3/uL; Monocyte% 6.8 % (0-10); NRBC Flagged by Analyzer 0 % (0-5); Neutrophil % 46.1 % (47-70); Platelet Count 228 K/mm3 (150-450); RBC Distribution Width CV 12.4 % (11.6-14.6); RBC Distribution Width SD 42.6 fl (35.1-43.9); Red Blood Count 4.51 M/mm3 (4.2-5.4)
[2023-07-02 10:29] LABS: Thyroid Stim Hormone (TSH) 0.88 uIU/mL (0.358-3.74)
== END | disposition home or self-care (01) ==
LOC: LAB 08:43
PROVIDERS: PCP Family Medicine; Referring Provider Obstetrics & Gynecology; Visit Provider Obstetrics & Gynecology
DX: N93.9 Abnormal uterine and vaginal bleeding, unspecified (principal)
CPT/HCPCS: 36415; 84443; 85025

== ENCOUNTER → 2024-07-22 | Outpatient (CLI) | payer BC, SELFPAY ==
[2024-07-28 13:07] LABS: HPV APTIMA, High Risk Negative (Negative)
== END | disposition home or self-care (01) ==
LOC: LABSPEC 11:55
PROVIDERS: PCP Family Medicine; Referring Provider Nurse Practitioner Women's Health; Visit Provider Nurse Practitioner Women's Health
DX: Z12.4 Encounter for screening for malignant neoplasm of cervix (principal); R10.2 Pelvic and perineal pain
CPT/HCPCS: 87070; 87205; 87624; 88175; G0145

== ENCOUNTER → 2024-08-29 | Outpatient (CLI) | payer BC, SELFPAY ==
--- NOTE | 2024-08-29 15:00 | EMB_PTH ---
PATIENT: LINNETTE MORALES LOC: [facility] U#:[id number] AGE/SX: 38/F ROOM: RE08/29/[address]: Dr. Cami Calderon DO : 1985 BED: DIS: 08/29/2024 SPEC #: [id number] RECD: 08/29/24 17:07 STATUS: SHELBY AMADOR #: [id number] VICENTE: 08/29/24 15:[address]: Cami Calderon DEPT: SURGICAL PATHOLOGY RECD BY: Saleem Ferris ENTERED: 09/01/24 08:32 SP TYPE: ENDOM BX/C [place] DR: Dr. Filipe López MD Tissues: A - Endometrium, NOS B - Uterine cervix, NOS Procedures: Surgery Specimen Level IV HEADER OPERATION: Colposcopy PRE-OP DIAGNOSIS: ASCUS TISSUE SUBMITTED: A- MAYCO B- 7o'clock MICROSCOPIC DIAGNOSIS A. Endocervix, curettage: * Scant benign endocervical epithelium. B. Cervix, 7:00, biopsy: * Benign squamous mucosa. * No dysplasia is seen in these sections. MICROSCOPIC DESCRIPTION Slides are reviewed. GROSS DESCRIPTION A. Received in formalin in a container labeled with the patient's name, date of , and ECC is a scant amount of wispy soft tissue. The specimen is submitted entirely for cellblock preparation in A1. B. Received in formalin in a container labeled with the patient's name, date of , and 7:00 is a 0.5 x 0.4 x 0.3 cm fragment of white-pink soft tissue. Submitted in toto in B1. [facility] 09-01-2024 CPT:[id number]
== END | disposition home or self-care (01) ==
LOC: LABSPEC 16:07
PROVIDERS: PCP Family Medicine; Referring Provider Obstetrics & Gynecology; Visit Provider Obstetrics & Gynecology
DX: R87.610 Atypical squamous cells of undetermined significance on cytologic smear of cervix (ASC-US) (principal)
CPT/HCPCS: 88305

== ENCOUNTER 2024-11-11 11:30 | Outpatient (RCR) | payer BC, SELFPAY ==
--- NOTE | 2024-08-06 14:25 | HP.PTEVAL_ITS ---
Patient's Visit Information Visit Information Visit Information: LINNETTE MORALES is a 38 year old F referred to Physical Therapy by JOAQUIM Chau with a diagnosis of STRESS URINARY INCONTINENCE. Date of Evaluation: 08/05/24 Physical Therapist: Edna Puri PT, Cert MDT Visit Plan Frequency: 1x/Week Duration: 2-4 Months Plan: MANUAL THERAPY FOR STM, STRETCHING AND RELAXATION TRAINING OF PELVIC FLOOR. URINARY URGE AND FREQUENCY EDUCATION. HEALTHY BLADDER, BACK AND POSTURE HABIT EDUCATION. PELVIC FLOOR STRENGTH AND ENDURANCE TRAINING. TRAINING IN COORDINATION OF PELVIC FLOOR MUSCULATURE WITH HIP AND CORE (TRANSVERSE ABDOMINUS) MUSCULATURE. 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 TWINS BORN DEC 2019. 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 Present symptoms: URINATION DURING RUNNING AND PAIN WITH INTERCOURSE. OCCASSIONALLY DOESN'T MAKE IT TO THE BATHROOM IN TIME. Present since: DEC 2021 Pain Scale: WORST 4/10, LEAST 0/10 Currently: 0/10. ONLY HAVING PAIN DURING INTERCOURSE Commenced as a result of: CHILDBIRTH Symptoms at onset: PAIN DURING INTERCOURSE. URINARY INCONTINENCE DURING RUNNING. Worse: INTEROURSE - PAIN, RUNNING -UI, ARRIVING AT HOME AFTER HOLDING IT A LONG TIME - URGE UI. Better: REGULAR VOIDING, EMPTYING BLADDER BEFORE RUNNING. OTHERWISE - NOTHING. Previous history/Previous treatment: VAGINAL WITH TWINS. Treatment this episode: JUST STARTED PRESCRIPTION ESTROGEN CREAM - NE YET. Gait: NORMAL How long can you delay the need to urinate: NORMALLY A COUPLE HRS. Prolapse (Falling out feeling): NO Frequency of Urination: ABOUT EVERY 2 HOURS Fluid intake: coffee in the morning and a glass of water or coffee in the afternoon (decaf coffee only). Ability to stop urine flow: unsure Ability to initiate urine stream: yes Dyspareunia: yes Bowel Incontinence: no Accidents: NO Unexplained weight loss: NO Imaging: NO PMH/Recent major surgery: UNREMARKABLE. Objective Objective: Sitting/Standing Posture: NORMAL LUMBAR LORDOSIS. NO RELEVANT LATERAL LUMBAR SHIFT. Other Observations: INDEP GAIT AND TRANSFERS Sensory deficit: NORMAL ELVA LE LIGHT TOUCH SENSATION ROM deficit: MILD ELVA LE HS AND CALF TIGHTNESS Motor deficit: ELVA LE'S 5/5. Dural Signs: NEGATIVE ELVA LE'S. Lumbar mvmt loss: flex - NIL ext - MIN R SG - NIL L SG - NIL PATIENT C/O CENTRAL LBP WITH LUMBAR EXTENSION TESTING THAT SHE RELATES TO LIFTING HER TWINS TOO MUCH. NW A RESULT. Core strength: GOOD Palpation: NO ACUTE LUMBAR TENDERNESS FUNCTIONAL SCREEN: Incontinence Impact Questionnaire Score: 6 Urogenital Distress Inventory Score: 6 Goals Goal 1:: PATIENT WILL BE ABLE TO HAVE SEXUAL RELATIONS WITH HER WITHOUT PAIN. Goal Time Frame: 6-8 Weeks Goal 2:: DEVELOP HEALTHY FLUID INTAKE HABITS WITH FLUID INTAKE OF ? BODY WEIGHT IN OUNCES PER DAY AND 2/3 BEING WATER. Goal Time Frame: 2-4 Weeks Goal 3:: NORMALIZE VOIDING FREQUENCEY TO EVERY 3-4 HOURS. Goal Time Frame: 2-4 Weeks Goal 4:: PATIENT WILL SUCCESSFULLY DELAY VOIDING LONG NEEDED WHEN URGENCY OCCURS TO SUCCESSFULLY MAKE IT TO THE BATHROOM. Goal Time Frame: 4-6 Weeks Goal 5:: IMPROVE PELVIC FLOOR MUSCLE STRENGTH AND ENDURANCE TO IMPROVE URINARY INCONTINENCE Goal Time Frame: 8-12 Weeks Goal 6:: PATIENT WILL BE INDEP WITH A HEP/HOME INSTRUCTIONS FOR CONTINUED IMPROVEMENT ONCE FORMAL PHYSICAL THERAPY CONCLUDES. Goal Time Frame: 8-12 Weeks Rehabilitation Potential Physical Therapy Diagnosis: PELVIC FLOOR TIGHTNESS, WEAKNESS AND TENDERNESS WITH C/O DYSPAREUNIA, MARANDA, URGE INCONTINENCE AND INCREASED URINARY FREQUENCY. Rehabilitation Potential: Good Anticipated Interventions Patient/Client Instruction: Educate patient on: Condition, Plan of Care and Risk Factors For the Purpose of:: To improve self management Therapeutic Exercise to Include: Strength training, Endurance training, Coordination, Body mechanics, Postural training, Flexibilty training, Neuromotor development and Relaxation training For the Purpose of:: To decrease pain, To increase ROM, To improve muscle performance and motor function, To increase tolerance to activity/condition/position, To decrease soft tissue restriction, To increase flexibility/ROM, To improve self management and To improve ability to perform tasks related to life management Manual Therapy Techniques to Include: Trigger point massage and Soft tissue mobilization Comment: MANUAL INTERNAL VAGINAL STM AND TRIGGER POINT RELEASE For the Purpose of:: To decrease pain, To increase ROM and To decrease soft tissue restriction Text: Thank you for the opportunity to evaluate your patient. For Medicare and Medicare HMO plans, please review the plan of care and approve it. It will need to be FAXED BACK to us at [phone] for Medicare purposes. For Medicare only, by signing this I certify the plan of care. Please let me know if there are questions or concerns regarding this plan of care. Physician Signature: Date:
== END 2024-11-11 19:00 | disposition home or self-care (01) ==
LOC: PT 11:30
PROVIDERS: PCP Family Medicine; Referring Provider Nurse Practitioner Women's Health; Visit Provider Nurse Practitioner Women's Health
DX: N39.3 Stress incontinence (female) (male) (principal)
CPT/HCPCS: 97035; 97110; 97112; 97140; 97162; 97530